=== PATIENT | female | born 1985 | race African-American/Black ===

== ENCOUNTER → 2019-06-23 09:46 | Outpatient (CLI) | payer MEDICARE ==
[~2019-06-23 09:46] MED LIST: ATARAX 25 MG TA25 MG PO; BAYER CHEWABLE81 MG PO; CONSTULOSE PO; COREG25 MG PO; COZAAR25 MG PO; ISOSORBIDE DINI10 MG PO; NITROQUICK0.4 MG SL; NORVASC10 MG PO; PERCOCET 10-321 EAC1 PO; PHENERGAN6.25 MG/5 PO; PLAVIX75 MG PO; REGLAN5 MG PO; RENVELA800 MG PO; ZOFRAN ODT4 MG/UDTAB PO
[2019-08-06 10:02] VITALS: BMI 25.6
== END | disposition home or self-care (01) ==
LOC: D.HCCARDIO 09:46
PROVIDERS: ATTEND Internal Medicine Cardiovascular Disease
DX: I20.9 Angina pectoris, unspecified (principal)

== ENCOUNTER 2019-07-09 07:20 | Outpatient (CLI) | payer MEDICARE ==
[~2019-07-09] VITALS: Ht 157.5 cm; Wt 63.6 kg
--- NOTE | ~2019-07-09 | HEMODYNAMI ---
PATIENT:SHAI ADAME MEDICAL RECORD: [id number] : 85 LOCATION:[facility] ADMISSION DATE: 07/09/19 Generatedon:07/09/201911:33 Patient name: SHAI ADAME Patient #: [id number] SSN: [id number] : 1985 Date of study: 07/09/2019 Page: Of Hemodynamic Procedure Report Patient Data Patient Demographics Procedure consent was obtained First Name: SHAI Gender: Female Last Name: DEEP : 1985 Patient #: [id number] Age: 34 year(s) Race: Black SSN: [id number] Additional ID: [id number] Contact details [address]: [address] [place] [address] State: [place] City: [place] Zip code: [address] Past Medical History Performed procedures and imaging results Date Procedure Procedure Results Comments Stress testing Positive->Intermediate with SPECT MPI risk Allergies Allergen Reaction Date Comments Reported Other allergy 07/09/2019 LATEX, LEMON, STOCKBRIDGE, PCN, FENTANYL Admission Admission Data Admission Date: 07/09/2019 Admission Time: 7:20 Arrival Date: 07/09/2019 Arrival Time: 0:00 Admit Source: Other Insurance Payor: Medicare [facility] #: [id number] Height (in.): 61.81 BSA: 1.64 (m2) Height (cm.): 157 BMI: 25.96 (kg/m2) Weight (lbs.): 141.1 Weight (kg.): 64 Lab Results Lab Result Date: 07/09/2019 Lab Result Time: 0:00 Biochemistry Name Units Result Min Max BUN mg/dl 32 --(----)-* 7 18 Creatinine mg/dl 7 --(----)-* 0.6 1.3 eGFR ml/min 9 *-(----)-- 90 120 AM CBC Name Units Result Min Max Hematocrit % 36.8 *-(----)-- 42 54 Hemoglobin g/dl 12.6 -*(----)-- 13.5 17.5 Procedure Procedure Types Cath Procedure Diagnostic Procedure [facility] w/Coron[facility] Procedure Description Procedure Date Procedure Date: 07/09/2019 Procedure Start Time: 10:47 Procedure End Time: 11:26 Procedure Staff Name Function Jorge Hernadez MD Performing Physician Lynn Tan RT Monitor Blaine Flynn RT Scrub Jovanna Stauffer RT Scrub Jenna Montero RN Nurse Tapan Lopez MD Additional personnel Procedure Data Cath Procedure Fluoroscopy Diagnostic fluoroscopy Total fluoroscopy Time: 2.4 time: 2.4 min min Diagnostic fluoroscopy Total fluoroscopy dose: 337 dose: 337 mGy mGy Contrast Material Contrast Material Type Amount (ml) Isovue 300 95 Entry Location Entry Primary Successful Side Size Upsize Upsize Entry Closure Succes sful Closure Location (Fr) 1 (Fr) 2 (Fr) Remarks Device Remarks Femoral Right 5 Fr Exoseal artery Estimated blood loss: 10 ml Diagnostic catheters Device Type Used For End Catheter Placement MULTIPACK JL 4.0 5Fr Procedure catheter MULTIPACK 3DRC 5Fr Procedure catheter MULTIPACK Pigtail 5 Fr Procedure catheter Procedure Complications No complications Procedure Medications Medication Administration Route Dosage 0.9% NaCl I.V. Oxygen etCO2 Nasal cannula 2 l/min Lidocaine 2% added to field 20 Heparin Flush Bag added to field 2 bags (1000units/500ml NS) Zofran I.V. 4 mg Versed I.V. 2 mg Demerol I.V. 25 mg Phenergan I.V. 25 mg Versed I.V. 2 mg Versed I.V. 2 mg Refer to Anesthesia Notes for Sedation Medications Hemodynamics Rest BSA: 1.64 (m2) HGB: 12.6 (g/dl) O2 Consumption: Estimated: 183.9 (ml/min) O2 Con sumption indexed: Estimated:112.13 (ml/min/m) Heart Rate: 90 (bpm) Pressure Samples Time Site Value (mmHg) Purpose Heart Use Rate(bpm) 11:19 LV 145/1,19 Snapshot 91 Gradients Valve Time Site Site Mean SEP/DFP Peak To Heart Use 1 2 (mmHg) (sec/min) Peak Rate (mmHg) (bpm) Aortic 11:20 LV AO 90 Snapshots Pre Cath Intra NCS Post Cath Vital Signs Time Heart Resp SPO2 etCO2 NIBP (mmHg) Rhythm Pain Sedation Rate (ipm) (%) (mmHg) Status Level (bpm) 10:30:29 85 21 100 27 Measuring NSR 0 (11) 10(A) , No pain 10:30:58 90 20 100 27.8 200/114(155) NSR 0 (11) 10(A) , No pain 10:35:24 94 21 100 27.1 211/124(204) NSR 0 (11) 10(A) , No pain 10:40:01 96 16 100 24 197/117(158) NSR 0 (11) 10(A) , No pain 10:44:29 99 17 100 12.7 185/110(144) NSR 0 (11) 10(A) , No pain 10:49:01 119 16 100 21.8 114/92(108) NSR 0 (11) 10(A) , No pain 10:53:54 121 14 100 24.8 187/141(175) NSR 0 (11) 10(A) , No pain 10:58:53 129 18 99 20.3 Measuring NSR 0 (11) 10(A) , No pain 10:59:30 124 16 100 24.8 223/131(174) NSR 0 (11) 10(A) , No pain 11:04:00 112 17 100 27 207/132(162) NSR 0 (11) 10(A) , No pain 11:07:23 96 24 100 27 172/113(138) NSR 0 (11) 5(A) , No pain 11:12:22 95 24 100 24 Measuring NSR 0 (11) 5(A) , No pain 11:12:55 93 23 100 21.8 180/102(140) NSR 0 (11) 5(A) , No pain 11:17:13 87 21 100 21 152/97(124) NSR 0 (11) 5(A) , No pain 11:21:25 90 32 100 17.2 140/86(118) NSR 0 (11) 5(A) , No pain 11:25:33 90 18 100 20.3 140/86(107) NSR 0 (11) 5(A) , No pain Medications Time Medication Route Dose Verified Delivered Reason Notes Eff ectiveness by by 10:29:50 0.9% NaCl I.V. kvo Jorge Jenna used for ml/hr Satya Montero insurance agency manager 10:29:58 Oxygen etCO2 2 Jorge Jenna used for Nasal l/min Satya Montero procedure cannula RN 10:30:06 Lidocaine 2% added 20ml Jorge Jorge for local to vial Satya Hernadez MD anesthetic field 10:30:12 Heparin Flush added 2 Jorge Jorge used for Bag to bags Satya Hernadez MD procedure (1000units/500ml field NS) 10:30:23 Zofran I.V. 4 mg Jorge Jenna for nausea Satya Montero RN 10:40:02 Versed I.V. 2 mg Jorge Jenna for Satya Montero sedation RN 10:40:08 Phenergan I.V. 25 mg Jorge Jenna for Satya Montero sedation RN 10:40:15 Demerol I.V. 25 mg Jorge Jenna for Satya Montero sedation RN 10:45:34 Versed I.V. 2 mg Jorge Jenna for Satya Montero sedation RN 10:53:42 Versed I.V. 2 mg Jorge Jenna for Satya Montero sedation RN 11:04:34 Refer to Jorge Jorge Anesthesia Notes Satya Hernadez MD for Sedation Medications Procedure Log Time Note 9:24:32 Signed procedure consent form obtained from patient. 9:24:35 Procedure Status Elective Heart Cath (OP). 9:24:40 Time tracking: Regular hours (M-F 7:00 - 5:00) 9:24:44 Plan of Care:Hemodynamics will remain stable., Cardiac rhythm will remain stable., Comfort level will be maintained., Respiratory function will remain adequate., Patient/ family verbilizes understanding of procedure., Procedure tolerated without complication., Recovers from procedure without complications.. 9:27:40 Patient allergic to Other allergyLATEX, LEMON, STOCKBRIDGE, PCN, FENTANYL 9::54 Lab Result : BUN 32 mg/dl 9::54 Lab Result : Creatinine 7 mg/dl 9::54 Lab Result : eGFR AM 9 ml/min 9::54 Lab Result : Hemoglobin 12.6 g/dl 9::54 Lab Result : Hematocrit 36.8 % 9:29:04 Patient Weight : 141.1 lbs 9:29:10 Patient Height : 61.81 inches 9:36:28 Insurance Payor : Medicare 9:36:33 Arrival Date: 07/09/2019 12:00:00 AM 9:36:37 Admit Source: Other 9:47:25 PCI Cath Status : Elective 9:47:26 Diagnostic Cath Status : Elective 10:15:17 Blaine Saleemley RT(R) sent for patient. Start room use. 10:21:36 Patient received from Pre/Post Procedure Room to CCL 3 Alert and oriented. Tansferred to table in Supine position. 10:21:38 Warm blankets applied, and alecia hugger turned on for patient comfort. 10:21:38 Correct patient and procedure confirmed by team. 10:21:39 ECG and BP/O2 sat monitors applied to patient. 10:28:41 Vital chart was started 10:28:43 Baseline sample Acquired. 10:28:48 Rhythm: sinus rhythm 10:28:49 Full Disclosure recording started 10:28:50 Pre-procedure instructions explained to patient. 10:28:50 Pre-op teaching completed and patient verbalized understanding. 10:28:52 Family in patients room. 10:29:28 H&P Date Dictated: 07/09/2019 Within 30 days and on chart., H&P Addendum completed by physician on day of procedure. (MUST COMPLETE FOR ALL OUTPATIENTS). 10:29:36 Is patient on blood thinner?No 10:29:39 Is the patient allergic to Iodine/contrast media? No. 10:29:42 Patient NPO since Midnight. 10:29:46 Patient diabetic? No. 10:29:50 0.9% NaCl kvo ml/hr I.V. was administered by Jenna Montero RN; used for procedure; 10:29:53 Previous problem with sedation/anesthesia? Yes NAUSEA 10:29:55 Snore? Yes 10:29:56 Sleep apnea? Yes 10:29:57 Deviated septum? No 10:29:57 Opens mouth fully? Yes 10:29:58 Oxygen 2 l/min etCO2 Nasal cannula was administered by Jenna Montero RN; used for procedure; 10:29:59 Sticks out tongue? Yes 10:30:00 Airway obstruction? No ? 10:30:03 Dentures? No ? 10:30:06 Lidocaine 2% 20ml vial added to field was administered by Jorge Hernadez MD; for local anesthetic; 10:30:10 Pre procedure: right dorsailis pedis pulse 1+ Palpable, but thready & weak; easily obliterated 10:30:12 Heparin Flush Bag (1000units/500ml NS) 2 bags added to field was administered by Jorge Hernadez MD; used for procedure; 10:30:17 IV patent on arrival in right antecubital with 0.9% NaCl at KVO. 10:30:23 Zofran 4 mg I.V. was administered by Jenna Montero RN; for nausea; 10:30:31 Lab results completed and on chart. 10:30:34 Right groin area was prepped with chlora-prep and draped in sterile fashion 10:30:37 RESERVE LEFT ARM. DIALYSIS 10:30:39 Alarms reviewed by R. N. 10:30:40 Sharps counted by scrub and verified by R.N. 10:37:24 Zero performed for pressure channel P1 10:39:47 --------ALL STOP TIME OUT------ 10:39:47 Final Timeout: patient, procedure, and site verified with staff and physician. All members of the team are in agreement. 10:39:49 Right groin site verified by team. 10:39:52 Fire Safety Assessment: A--An alcohol-based skin anteseptic being used preoperatively., C--Open oxygen or nitrous oxide is being used., D--An ESU, laser, or fiber-optic light is being used. 10:39:56 Physical assessment completed. ASA score P 3 - A patient with severe systemic disease as per Jorge Hernadez MD. 10:40:00 5) <15 or on dialysis Very severe, or end stage kidney failure. 10:40:02 Versed 2 mg I.V. was administered by Jenna Montero RN; for sedation; 10:40:04 Maximum allowable contrast dose (3.7 X eGFR X 0.75)24 ml. 10:40:08 Phenergan 25 mg I.V. was administered by Jenna Montero RN; for sedation; 10:40:09 Sedation plan: IV Moderate Sedation Medication:Versed 10:40:15 Demerol 25 mg I.V. was administered by Jenna Winston RN; for sedation; 10:40:37 Use device set Femoral Dx 10:40:40 ACIST Syringe (94797) opened to sterile field. 10:40:41 Bag Decanter (2002S) opened to sterile field. 10:40:42 ACIST Hand Control (08511) opened to sterile field. 10:40:43 ACIST Manifold (54615) opened to sterile field. 10:40:44 Tegaderm 4 x 4 (1626W) opened to sterile field. 10:40:46 Medline Cath Pack ([id number]) opened to sterile field. 10:40:47 DIAGNOSTIC Multipack 5Fr catheter set (PP0992) opened to sterile field. 10:40:48 SHEATH 5FR [place] (RJC083) opened to sterile field. 10:40:48 EMERALD Guide Wire (208-870) opened to sterile field. 10:45:34 Versed 2 mg I.V. was administered by Jenna Montero RN; for sedation; 10:46:06 Procedure started. 10:47:49 Local anesthetic to right femoral artery with Lidocaine 2% by Jorge Hernadez MD.INITIAL ACCESS ONLY 10:53:11 MICROPUNCTURE 4FR [employer] (C78341) opened to sterile field. 10:53:42 Versed 2 mg I.V. was administered by Jenna Montero RN; for sedation; 10:59:36 ANESTHESIA CALLED. PT CANNOT STAY STILL FOR PROCEDURE. 11:01:55 Tapan Lopez MD present and monitoring patient for TIVA. 11:04:34 Refer to Anesthesia Notes for Sedation Medications was administered by Jorge Hernadez MD; ; 11:11:57 A 5 Fr sheath was inserted into the Right Femoral artery 11:12:38 A MULTIPACK JL 4.0 5Fr catheter was advanced over the wire and used for Procedure. 11:15:06 LCA angiography performed. 11:15:41 Catheter exchanged over wire. 11:16:16 A MULTIPACK 3DRC 5Fr catheter was advanced over the wire and used for Procedure. 11:17:46 RCA angiography performed. 11:17:49 Catheter exchanged over wire. 11:18:21 ACCDominant side:Right 11:18:25 A MULTIPACK Pigtail 5 Fr catheter was advanced over the wire and used for Procedure. 11:19:03 LV gram done using REYNA 11:19:13 Injector settings: Ml/sec: 10, Volume: 20, 11:19:38 LV hemodynamics recorded. 11:20:08 EF : 25 % 11:21:41 Catheter removed. 11:21:43 EXOSEAL 5Fr (EX500) opened to sterile field. 11:23:07 Sheath removed intact; hemostasis achieved with Exoseal to the Right Femoral artery. 11:23:17 Procedure ended.(Physican Out) 11:23:26 Fluoroscopy time 02.40 minutes. 11:23:32 Fluoroscopy dose: 337 mGy 11:23:32 Flurop Dose total: 337 11:23:43 Contrast amount:Isovue 300 95ml. 11:23:45 Maximum allowable dose exceeded? Yes. 11:23:47 Sharps counted by scrub and verified by R.N. 11:23:50 Post-op/insertion site Right Femoral artery dressed using a 4 x 4 and Tegaderm. 11:23:52 Post-procedure physical assessment completed. ASA score P 3 - A patient with severe systemic disease as per Jorge Hernadez MD. 11:23:55 Post procedure rhythm: sinus rhythm 11::57 Estimated blood loss: 10 ml 11:23:58 Post procedure instruction explained to patient.Patient verbalizes understanding. 11:23:59 Patient needs reinforcement of post procedure teaching. 11:26:09 Procedure and supply charges have been captured, reviewed, submitted and are correct. 11:26:12 Procedure Complication : No complications 11:26:14 Vital chart was stopped 11:26:15 See physician's report for complete and final results. 11:26:17 Report given to Pre/Post Procedure Room. 11:26:21 Patient transfered to Pre/Post Procedure Room with Bed. 11:26:23 Procedure ended. 11:26:23 Full Disclosure recording stopped 11:26:27 End room use (Document Last) 11:30:41 FEMSTOP Gold ([id number]) opened to sterile field. 11:30:49 Femstop placed over the right femoral artery at 160 mmHg. Hemostasis achieved. Device Usage Item Name Manufacture Quantity Catalog Hospital Part Current Minimal Lot# / Number Charge Number Stock Stock Serial# Code ACIST Syringe Acist 1 24761 660014 469857 [id number] 20 () InnoVital [employer] Inc Bag Decanter Microtek 1 117778 96542 940111 5 (2002S) Medical Inc. ACIST Hand Acist 1 78122 676680 570629 339307 5 Control Medical (95257) Systems Inc ACIST Acist 1 44575 403080 341007 812346 5 Manifold Medical (52525) Systems Inc Tegaderm 4 x 3M 1 1626W 985523 595697 619422 5 4 (1626W) Medline Cath Medline 1 [id number] 526737 10343 853877 5 Pack ([id number]) DIAGNOSTIC Cardinal 1 TW0186 177742 92471 007985 30 Multipack 5Fr Health catheter set (QR7604) SHEATH 5FR Terumo 1 WUU462 593824 241783 656737 5 [place] (JTS391) EMERALD Guide Cardinal 1 113-359 390650 751851 398304 5 Wire Health (921-770) MICROPUNCTURE Cook Medical 1 R24453 926840 216197 217494 5 4FR Cook (V34986) MULTIPACK JL Cardinal 1 582696 5 4.0 5Fr Health catheter MULTIPACK Cardinal 1 550090 5 3DRC 5Fr Health catheter MULTIPACK Cardinal 1 255276 5 Pigtail 5 Fr Health catheter EXOSEAL 5Fr Cardinal 1 EX500 031707 731117 815912 10 (EX500) Health FEMSTOP Gold St Demetrio 1 C45455 887064 530950 550987 5 (J20135) Signature Audit [place] Stage Time Signature Unsigned Intra-Procedure 07/09/2019 Lynn Tan 11:32:55 AM RT(R) Signatures Performing Physician : Signature : Jorge Hernadez MD Date : Time : Monitor : Lynn Tan Signature : RT Date : Time : Nurse : Jenna Montero RN Signature : Date : Time : [place] [address] [place] [address]
[2019-07-09] MEDS ORDERED: PERCOCET 10-321 EAC1 PO (08:03)
[2019-07-09] MEDS ORDERED: REGLAN5 MG PO (08:03)
[2019-07-09] MEDS ORDERED: NORVASC10 MG PO (08:03)
[2019-07-09] MEDS ORDERED: RENVELA800 MG PO (08:04)
[2019-07-09] MEDS ORDERED: COREG25 MG PO (08:04)
[2019-07-09] MEDS ORDERED: ATARAX 25 MG TA25 MG PO (08:04)
[2019-07-09] MEDS ORDERED: COZAAR25 MG PO (08:05)
[2019-07-09] MEDS ORDERED: BAYER CHEWABLE81 MG PO (08:05)
[2019-07-09] MEDS ORDERED: ISOSORBIDE DINI10 MG PO (08:05)
[2019-07-09 08:21] VITALS: BP 187/94; Ht 157.5 cm; Wt 63.6 kg
[2019-07-09 08:22] LABS: BASOPHILS 0.4 % (0-2); EOSINOPHILS 2.5 % (0-7); HEMATOCRIT 36.8 % (36.0-48.0); HEMOGLOBIN 12.6 g/dL (12-16); IMMATURE GRANULOCYTES 0.4 % (0-5); LYMPHOCYTES 16.8 % (15-50); MCH 36.2 pg (26.0-34.0); MCHC 34.2 g/dL (31.0-37.0); MCV 105.7 fL (80.0-100.0); MEAN PLATELET VOLUME 10.5 fL (7.4-10.4); MONOCYTES 8.6 % (2-11); NEUTROPHILS 71.3 % (40-80); PLATELET COUNT 255 10x3/uL (130-400); RBC 3.48 10x6/uL (4.00-5.40); RDW 13.7 % (11.5-14.5); WBC 8.5 10x3/uL (4.8-10.8)
[2019-07-09 08:35] LABS: HCG SERUM NEGATIVE (NEGATIVE)
[2019-07-09 08:43] LABS: CARBON DIOXIDE 25.5 mmol/L (21.0-32.0); LDL-HDL RATIO 1.8 ratio (1.5-3.5); POTASSIUM - SERUM 4.5 mmol/L (3.5-5.1)
--- NOTE | 2019-07-09 11:39 | NUR ---
PT ARRIVED BY STRECHER. PLACED ON MONITORS. ASSESSMENT COMLETED. PT'S MOTHER AT BEDSIDE. DR. ELLIS AT BEDSIDE SPEAKING WITH HER. PT STILL SEDATED AND RESTING. FEMSTOP TO RIGHT GROIN AT 104mmHg. RIGHT LEG WARM TO TOUCH. PEDAL PULSE PRESENT WITH DOPPLER. CAP REFILL < 3 SECS
--- NOTE | 2019-07-09 11:55 | NUR ---
RIGHT GROIN DRESSING C/D/I. NO S/S OF HEMATOMA NOTED. PT'S BP 203/90. DR. RHONDA YOO.
--- NOTE | 2019-07-09 12:02 | NUR ---
SPOKE WITH DR. ELLIS. ORDERS RECEIVED FOR MEDICATION.
--- NOTE | 2019-07-09 12:25 | NUR ---
FEMSTOP TO RIGHT GROIN WITH ALL PRESSURE OUT. NO BLEEDING/HEMATOMA NOTED. PT PROPPED WITH PILLOW OFF OF RIGHT HIP DUE TO CHRONIC PAIN. TOLERATING WELL. CALL LIGHT WITHIN REACH.
--- NOTE | 2019-07-09 12:54 | NUR ---
RIGHT GROIN DRESSING C/D/I. NO S/S OF HEMATOMA NOTED. CALL LIGHT WITHIN REACH. FAMILY AT BEDSIDE. UPDATED ON PT'S STATUS. HEAD OF BED INC TO 30 DEGREES. TOLERATED WELL. VSS. BP TRENDING DOWN. 185/87. PT SET UP WITH DRINK AND SANDWICH TRAY.
--- NOTE | 2019-07-09 13:15 | NUR ---
RIGHT ARM PIV D/C'D WITH CATH TIP INTACT. PT TOLERATED WELL. VSS. PT INSTRUCTED TO GET UP AND DRESSED. AT BEDSIDE TO ASSIST.
--- NOTE | 2019-07-09 13:35 | NUR ---
DISCUSSED DISCHARGE INSTRUCTIONS WITH PT AND PT'S FAMILY. THEY VOICED UNDERSTANDING. WILL FOLLOW UP WITH DR. ELLIS TOMORROW AT THE [facility] AT 10:45. APPT TIME GIVEN TO PT'S MOTHER.
--- NOTE | 2019-07-09 13:45 | NUR ---
PT TAKEN OUT TO VEHICLE BY WHEELCHAIR. NO S/S OF DISTRESS NOTED. ALL BELONGINGS AND PAPERWORK IN HAND.
== END 2019-07-09 13:45 | disposition home or self-care (01) ==
LOC: D.CATH 07:20
PROVIDERS: ATTEND Internal Medicine Cardiovascular Disease
DX: I25.119 Atherosclerotic heart disease of native coronary artery with unspecified angina pectoris (principal); Z01.812 Encounter for preprocedural laboratory examination

== ENCOUNTER 2019-08-06 09:23 | Outpatient (CLI) | payer MEDICARE ==
[~2019-08-06] VITALS: Ht 157.5 cm; Wt 63.6 kg
--- NOTE | ~2019-08-06 | HEMODYNAMI ---
PATIENT:SHAI ADAME MEDICAL RECORD: [id number] : 85 LOCATION:[facility] ADMISSION DATE: 08/06/19 Generatedon:08/06/201913:28 Patient name: SHAI ADAME Patient #: [id number] SSN: [id number] : 1985 Date of study: 08/06/2019 Page: Of Hemodynamic Procedure Report Patient Data Patient Demographics Procedure consent was obtained First Name: SHAI Gender: Female Last Name: DEEP : 1985 Patient #: [id number] Age: 34 year(s) Race: Black SSN: [id number] Additional ID: [id number] Contact details [address]: [address] [place] [address] State: [place] City: [place] Zip code: [address] Past Medical History Allergies Allergen Reaction Date Comments Reported Other allergy 07/09/2019 LATEX, LEMON, SELDOVIA, PCN, FENTANYL Other allergy 08/06/2019 latex, PCN, Fentanyl, Lemon/Ak Chin Admission Admission Data Admission Date: 08/06/2019 Admission Time: 9:23 Room #: [facility] Lab Results Lab Result Date: 08/06/2019 Lab Result Time: 10:00 Biochemistry Name Units Result Min Max BUN mg/dl 41 --(----)-* 7 18 Creatinine mg/dl 7.8 --(----)-* 0.6 1.3 CBC Name Units Result Min Max Hematocrit % 43.7 --(*---)-- 42 54 Hemoglobin g/dl 14.6 --(-*--)-- 13.5 17.5 Procedure Procedure Types Cath Procedure Diagnostic Procedure Sedation Charges Moderate Sedation up to 30 minutes PCI Procedure Coronary Stent Coronary Stent Initial Coronary Stent Initial x2 Procedure Description Procedure Date Procedure Date: 08/06/2019 Procedure Start Time: 12:41 Procedure End Time: 13:17 Procedure Staff Name Function Christian Bishop MD Performing Physician Elizabeth Grande RT Monitor Brandie Bell RT Scrub Heath Inman RN Nurse Lorie An RN Milking Machine Operator Leland Gonzalez CRNA Additional personnel Procedure Data Cath Procedure Fluoroscopy Diagnostic fluoroscopy Total fluoroscopy Time: time: 10.2 min 10.2 min Diagnostic fluoroscopy Total fluoroscopy dose: dose: 1462 mGy 1462 mGy Contrast Material Contrast Material Type Amount (ml) Isovue 300 140 Entry Location Entry Primary Successful Side Size Upsize Upsize Entry Closure Succes sful Closure Location (Fr) 1 (Fr) 2 (Fr) Remarks Device Remarks Femoral Right 7 Fr Exoseal artery Short Estimated blood loss: 5 ml Procedure Complications No complications Procedure Medications Medication Administration Route Dosage Phenergan 25 mg 0.9% NaCl I.V. 10 ml/hr Oxygen etCO2 Nasal cannula 5 l/min Heparin Flush Bag added to field 2 bags (1000units/500ml NS) Lidocaine 2% added to field 20 Pepcid I.V. 20 mg Refer to Anesthesia Notes for Sedation Medications Heparin Bolus I.V. 4000 units Integrilin (Bolus I.V. 5.6 ml 2mg/ml) Integrilin (Bolus wasted 4.4 ml 2mg/ml) Plavix P.O. 600 mg Hemodynamics Rest HGB: 14.6 (g/dl) Heart Rate: 104 (bpm) Snapshots Pre Cath Intra NCS Post Cath Vital Signs Time Heart Resp SPO2 etCO2 NIBP (mmHg) Rhythm Pain Sedation Rate (ipm) (%) (mmHg) Status Level (bpm) 12:34:40 100 18 100 31.4 208/129(173) NSR 0 (11) 10(A) , No pain 12:44:09 106 18 100 29.2 155/106(130) NSR 0 (11) 8(A) , No pain 12:48:23 108 30 100 33.7 171/112(139) NSR 0 (11) 8(A) , No pain 12:52:41 106 18 100 36.7 135/90(111) NSR 0 (11) 8(A) , No pain 12:56:51 104 18 100 36.7 128/85(105) NSR 0 (11) 8(A) , No pain 13:00:59 99 16 100 37.4 122/82(105) NSR 0 (11) 8(A) , No pain 13:05:07 103 17 100 38.1 115/81(95) NSR 0 (11) 8(A) , No pain 13:09:15 106 16 100 38.2 113/71(92) NSR 0 (11) 8(A) , No pain 13:13:21 109 16 100 38.9 109/73(96) NSR 0 (11) 8(A) , No pain 13:22:19 110 19 100 32.9 115/74(92) NSR 0 (11) 9(A) , No pain Medications Time Medication Route Dose Verified Delivered Reason Notes Effectiveness by by 12:15:34 Phenergan IM to 25 mg Christian Melo Per physician Pt st ates Rt GM Edna An RN vomiting with any form of sedation. 12:32:28 0.9% NaCl I.V. 10 Heath Heath Per physician ml/hr Henny Inman RN RN 12:32:55 Oxygen etCO2 5 Heath Heath for low 02 sats Nasal l/min Henny Inman cannula RN RN 12:33:20 Heparin Flush added 2 Heath Heath used for Bag to bags Henny Inman procedure (1000units/500ml RN RN NS) 12:33:33 Lidocaine 2% added 20ml Heath Heath for local to vial Henny Inman anesthetic field RN RN 12:33:45 Pepcid I.V. 20 mg Heath Heath for nausea Henny Inman RN RN 12:34:07 Refer to Heath Heath for sedation Anesthesia Notes Henny Inman for Sedation RN RN Medications 12:51:31 Heparin Bolus I.V. 4000 Heath Heath for units Henny Inman anticoagulation RN RN 12:51:46 Integrilin I.V. 5.6 Heath Heath for (Bolus 2mg/ml) ml Henny Inman antiplatelet RN RN therapy 12:52:04 Integrilin wasted 4.4 Heath Heath to sharp's (Bolus 2mg/ml) ml Henny Inman RN RN 13:28:12 Plavix P.O. 600 Heath Heath for mg Henny Inman antiplatelet RN RN therapy Procedure Log Time Note 12:15:34 Phenergan 25 mg IM to Rt GM was administered by Lorie An RN; Per physician; Pt states vomiting with any form of sedation. Verbal order read back and verified. 12:21:24 Brandie Bell RT(R) sent for patient. Start room use. 12:21:29 Time tracking: Regular hours (M-F 7:00 - 5:00) 12:21:34 Plan of Care:Hemodynamics will remain stable., Cardiac rhythm will remain stable., Comfort level will be maintained., Respiratory function will remain adequate., Patient/ family verbilizes understanding of procedure., Procedure tolerated without complication., Recovers from procedure without complications.. 12:21:40 Patient received from Pre/Post Procedure Room to CCL 2 Alert and oriented. Tansferred to table in Supine position. 12:21:42 Warm blankets applied, and alecia hugger turned on for patient comfort. 12:21:43 Signed procedure consent form obtained from patient. 12:21:44 Correct patient and procedure confirmed by team. 12:21:44 ECG and BP/O2 sat monitors applied to patient. 12:22:57 H&P Date Dictated: 07/10/2019 Within 30 days and on chart., H&P Addendum completed by physician on day of procedure. (MUST COMPLETE FOR ALL OUTPATIENTS). 12:23:00 Pre-procedure instructions explained to patient. 12:23:01 Pre-op teaching completed and patient verbalized understanding. 12:23:02 Family in waiting room. 12:23:03 Patient NPO since Midnight. 12:23:43 Patient allergic to Other allergylatex, PCN, Fentanyl, Lemon/Ak Chin 12:23:45 Is the patient allergic to Iodine/contrast media? No. 12:23:46 Patient diabetic? Yes. 12:23:47 If diabetic: On Metformin? No 12:23:50 Previous problem with sedation/anesthesia? Yes nausea 12:23:58 Snore? Yes 12:23:59 Sleep apnea? Yes 12:24:00 Deviated septum? No 12:24:13 Opens mouth fully? Yes 12:24:18 Sticks out tongue? Yes 12:24:20 Airway obstruction? Yes ? 12:24:22 Dentures? No ? 12:24:25 Pre procedure: right dorsailis pedis pulse 2+ Normal; easily identifiable; not easily obliterated 12:24:34 Patient pain scale 0/10 ?. 12:24:38 IV patent on arrival in right wrist with 0.9% NaCl at [facility]. 12:25:21 Leland Gonzalez CRNA present and monitoring patient for TIVA. 12::48 Lab Result : BUN 41 mg/dl 12::48 Lab Result : Creatinine 7.8 mg/dl 12::48 Lab Result : Hemoglobin 14.6 g/dl 12::48 Lab Result : Hematocrit 43.7 % 12::50 Lab results completed and on chart. 12:25:52 Right groin area was prepped with chlora-prep and draped in sterile fashion 12::53 Alarms reviewed by R. N. 12::53 Sharps counted by scrub and verified by R.N. 12:25:55 Use device set Femoral Dx 12:26:05 ACIST Syringe (12636) opened to sterile field. 12:26:05 Bag Decanter (2002S) opened to sterile field. 12:26:06 Medline Cath Pack ([id number]) opened to sterile field. 12:26:07 ACIST Hand Control (85619) opened to sterile field. 12:26:07 ACIST Manifold (27739) opened to sterile field. 12:26:08 Tegaderm 4 x 4 (1626W) opened to sterile field. 12:26:10 EMERALD Guide Wire (813-897) opened to sterile field. 12:29:03 5) <15 or on dialysis Very severe, or end stage kidney failure. 12:30:11 Physician arrived 12::12 --------ALL STOP TIME OUT------ 12:30:12 Final Timeout: patient, procedure, and site verified with staff and physician. All members of the team are in agreement. 12:30:14 Right groin site verified by team. 12:30:19 Fire Safety Assessment: A--An alcohol-based skin anteseptic being used preoperatively., C--Open oxygen or nitrous oxide is being used., D--An ESU, laser, or fiber-optic light is being used. 12:30:28 Physical assessment completed. ASA score P 2 - A patient with mild systemic disease as per Christian Bishop MD. 12:30:32 Maximum allowable contrast dose (3.7 X eGFR X 0.75)22 ml. 12:30:35 Sedation plan: IV Moderate Sedation Medication:Versed, Fentanyl 12:32:19 Vital chart was started 12::28 0.9% NaCl 10 ml/hr I.V. was administered by Heath Inman RN; Per physician; Verbal order read back and verified. 12:32:38 Baseline sample Acquired. 12:32:41 Full Disclosure recording started 12:32:55 Oxygen 5 l/min etCO2 Nasal cannula was administered by Heath Inman RN; for low 02 sats; Verbal order read back and verified. 12:33:20 Heparin Flush Bag (1000units/500ml NS) 2 bags added to field was administered by Heath Inman RN; used for procedure; Verbal order read back and verified. 12:33:33 Lidocaine 2% 20ml vial added to field was administered by Heath Inman RN; for local anesthetic; Verbal order read back and verified. 12:33:45 Pepcid 20 mg I.V. was administered by Heath Inman RN; for nausea; Verbal order read back and verified. 12:34:07 Refer to Anesthesia Notes for Sedation Medications was administered by Heath Inman RN; for sedation; Verbal order read back and verified. 12:37:49 CHOICE PT Extra Support 182cm wire ([id number]) opened to sterile field. 12:41:16 Procedure started. 12:41:19 Local anesthetic to right femoral artery with Lidocaine 2% by Christian Bishop MD.INITIAL ACCESS ONLY 12:41:37 A 7 Fr Short sheath was inserted into the Right Femoral artery 12:42:49 SHEATH 7FR Dunnigan (SRW744) opened to sterile field. 12:42:50 INFLATOR Merit BasixCompak (LM1294) opened to sterile field. 12:48:22 GUIDE 7FR HS II SH catheter ([id number]) opened to sterile field. 12:49:00 7 Fr hs 2 sh guide catheter was inserted over the wire 12:49:06 choice pt wire advanced. 12:49:10 Wire advanced across lesion. 12:51:31 Heparin Bolus 4000 units I.V. was administered by Heath Inman RN; for anticoagulation; Verbal order read back and verified. 12:51:46 Integrilin (Bolus 2mg/ml) 5.6 ml I.V. was administered by Heath Inman RN; for antiplatelet therapy; Verbal order read back and verified. 12:52:04 Integrilin (Bolus 2mg/ml) 4.4 ml wasted was administered by Heath Inman RN; to josh's; Verbal order read back and verified. 12:52:05 Inflate balloon Inflation number: 1 A EUPHORA 2.5 x 25 Balloon ([id number]) was prepped and advanced across the Dist RCA 95, then inflated to 13 SHILA for 0:10 (min:sec) . 12:52:15 Inflation number: 2 The EUPHORA 2.5 x 25 Balloon ([id number]) was reinflated across the Dist RCA , to 13 SHILA for 0:10 (min:sec) . 12:52:44 Inflation number: 1 The EUPHORA 2.5 x 25 Balloon ([id number]) was reinflated across the Mid RCA 95, to 13 SHILA for 0:10 (min:sec) 0. 12:53:03 Inflation number: 1 The EUPHORA 2.5 x 25 Balloon ([id number]) was reinflated across the Prox RCA 95, to 13 SHILA for 0:10 (min:sec) . 12:53:10 Inflation number: 2 The EUPHORA 2.5 x 25 Balloon ([id number]) was reinflated across the Prox RCA , to 13 SHILA for 0:10 (min:sec) . 12:53:16 Balloon removed over the wire. 12:54:24 Place stent Inflation Number: 3 A JAIME RX 2.5 x 38 stent ([id number]) was prepped and advanced across the Dist RCA 95. The stent was deployed at 13 SHILA for 0:10 (min:sec) . 12:55:07 Stent catheter was removed intact over wire. 12:55:47 Place stent Inflation Number: 2 A JAIME RX 2.5 x 38 stent ([id number]) was prepped and advanced across the Mid RCA 95. The stent was deployed at 17 SHILA for 0:10 (min:sec) . 12:56:38 Stent catheter was removed intact over wire. 12:57:19 Place stent Inflation Number: 3 A JAIME RX 2.75 x 38 stent ([id number]) was prepped and advanced across the Prox RCA 95. The stent was deployed at 17 SHILA for 0:10 (min:sec) 0. 12:58:07 Inflation number: 4 The stent balloon was then re-inflated across the Prox RCA 95 to 17 SHILA for 0:10 (min:sec) . 12:58:28 Stent catheter was removed intact over wire. 12:58:39 Wire removed. 12:58:40 Guide catheter removed. 12:58:56 GUIDE 7FR EBU 3.5 SH catheter ([id number]) opened to sterile field. 12:59:16 7 Fr ebu 3.5 sh guide catheter was inserted over the wire 12:59:22 choice pt wire advanced. 13:02:23 Wire advanced across lesion. 13:03:10 The JAIME RX 2.0 x 22 stent ([id number]) was advanced then removed because of failure to cross lesion 13:05:17 Inflate balloon Inflation number: 1 A EUPHORA 2.0 x 20 Balloon ([id number]) was prepped and advanced across the Prox CX , then inflated to 15 SHILA for 0:10 (min:sec) . 13:05:46 Inflation number: 2 The EUPHORA 2.0 x 20 Balloon ([id number]) was reinflated across the Prox CX , to 19 SHILA for 0:10 (min:sec) . 13:06:41 Balloon removed over the wire. 13:07:26 Place stent Inflation Number: 3 A JAIME RX 2.0 x 22 stent ([id number]) was prepped and advanced across the Prox CX 90. The stent was deployed at 17 SHILA for 0:10 (min:sec) . 13:08:54 ACT drawn and resulted at 306 seconds. (normal therapeutic range 180-240 seconds). 13:09:36 Stent catheter was removed intact over wire. 13:10:30 Wire redirected to lad. 13:11:11 Place stent Inflation Number: 1 A JAIME RX 2.75 x 12 stent ([id number]) was prepped and advanced across the Prox LAD 95. The stent was deployed at 17 SHILA for 0:10 (min:sec) . 13:12:47 Stent catheter was removed intact over wire. 13:12:48 Wire removed. 13:12:48 Guide catheter removed. 13:12:55 EXOSEAL 7Fr (EX700) opened to sterile field. 13:13:05 Sheath removed intact; hemostasis achieved with Exoseal to the Right Femoral artery. 13:13:07 Procedure ended.(Physican Out) 13:13:48 Fluoroscopy time 10.20 minutes. 13:14:09 Fluoroscopy dose: 1462 mGy 13:14:09 Flurop Dose total: 1462 13:14:35 Contrast amount:Isovue 300 140ml. 13:14:38 Maximum allowable dose exceeded? Yes. 13:14:45 Sharps counted by scrub and verified by R.N. 13:14:46 Insertion/operative site no bleeding no hematoma. 13:14:50 Post-op/insertion site Right Femoral artery dressed using a 4 x 4 and Tegaderm. 13:15:01 Post Procedure Pulses reassessed and unchanged 13:15:03 Post procedure rhythm: unchanged. 13:15:06 Estimated blood loss: 5 ml 13:15:07 Post procedure instruction explained to patient.Patient verbalizes understanding. 13:15:08 Patient needs reinforcement of post procedure teaching. 13:15:58 Procedure type changed to Cath procedure, Diagnostic procedure, Sedation Charges, Moderate Sedation up to 30 minutes, PCI procedure, Coronary Stent, Coronary Stent Initial, Coronary Stent Initial x2 13:16:11 Procedure and supply charges have been captured, reviewed, submitted and are correct. 13:16:16 Procedure Complication : No complications 13:16:29 Vital chart was stopped 13:16:34 See physician's report for complete and final results. 13:16:55 Report given to Pre/Post Procedure Room. 13:16:57 Patient transfered to Pre/Post Procedure Room with Stretcher. 13:17:00 Procedure ended. 13:17:00 Full Disclosure recording stopped 13:17:45 ACC-PCI Only Patient was given prescriptions, or instructed by Christian Bishop MD to start/continue the following medications upon discharge: Plavix 13:17:47 End room use (Document Last) 13:28:12 Plavix 600 mg P.O. was administered by Heath Inman RN; for antiplatelet therapy; Verbal order read back and verified. Intervention Summary Intervention Notes Time ActionType Lesion and Equipment Used Action# Pressure Duration Attributes 12:52:05 Inflate Dist RCA EUPHORA 2.5 x 1 13 00:10 balloon 25 Balloon ([id number]) 12:52:15 Reinflate Dist RCA EUPHORA 2.5 x 2 13 00:10 balloon 25 Balloon ([id number]) 12:52:44 Reinflate Mid RCA EUPHORA 2.5 x 1 13 00:10 balloon 25 Balloon ([id number]) 12:53:03 Reinflate Prox RCA EUPHORA 2.5 x 1 13 00:10 balloon 25 Balloon ([id number]) 12:53:10 Reinflate Prox RCA EUPHORA 2.5 x 2 13 00:10 balloon 25 Balloon ([id number]) 12:54:24 Place stent Dist RCA JAIME RX 2.5 x 3 13 00:10 38 stent ([id number]) 12:55:47 Place stent Mid RCA JAIME RX 2.5 x 2 17 00:10 38 stent ([id number]) 12:57:19 Place stent Prox RCA JAIME RX 2.75 x 3 17 00:10 38 stent ([id number]) 12:58:07 Reinflate Prox RCA JAIME RX 2.75 x 4 17 00:10 stent 38 stent balloon ([id number]) 13:03:10 Discard JAIME RX 2.0 x Stent 22 stent ([id number]) 13:05:17 Inflate Prox CX EUPHORA 2.0 x 1 15 00:10 balloon 20 Balloon ([id number]) 13:05:46 Reinflate Prox CX EUPHORA 2.0 x 2 19 00:10 balloon 20 Balloon ([id number]) 13:07:26 Place stent Prox CX JAIME RX 2.0 x 3 17 00:10 22 stent ([id number]) 13:11:11 Place stent Prox LAD JAIME RX 2.75 x 1 17 00:10 12 stent ([id number]) Device Usage Item Name Manufacture Quantity Catalog Number Hospital Part Current M inimal Lot# / Charge Number Stock Stock Serial# Code ACIST Syringe Acist 1 06052 202206 686649 847054 2 0 (92238) Medical Systems Inc Bag Decanter Microtek 1 253007 47878 211972 5 () Medical Inc. Medline Cath Medline 1 [id number] 473313 10644 014483 5 Pack ([id number]) ACIST Hand Acist 1 44619 806965 784805 111936 5 Control Medical (59867) Systems Inc ACIST Manifold Acist 1 72377 995045 443388 943452 5 (20522) Medical Systems Inc Tegaderm 4 x 4 3M 1 1626W 949461 438355 077309 5 (1626W) EMERALD Guide Cardinal 1 502-455 173090 055710 684968 5 Wire (502-455) Health CHOICE PT Bethesda 1 [id number] 950977 973686 547362 5 Extra Support Scientific 182cm wire ([id number]) SHEATH 7FR Terumo 1 PHB772 688379 169829 801898 5 Dunnigan (EWJ458) INFLATOR Merit Merit 1 SJ2661 957853 088179 321986 1 5 GiftCard.com (DJ3075) GUIDE 7FR HS Medtronic 1 [id number] 369325 752128 744192 0 II SH catheter ([id number]) EUPHORA 2.5 x Medtronic 1 [id number] 566197 982448 393307 5 [id number] 25 Balloon ([id number]) JAIME RX 2.5 x Medtronic 2 [id number] 565802 0260189 403944 5 [id number] 38 stent [id number] ([id number]) JAIME RX 2.75 x Medtronic 1 [id number] 831542 9252072 036383 5 [id number] 38 stent ([id number]) GUIDE 7FR EBU Medtronic 1 [id number] 203770 466194 286079 0 3.5 SH catheter ([id number]) JAIME RX 2.0 x Medtronic 1 [id number] 095593 0231245 729254 5 [id number] 22 stent ([id number]) EUPHORA 2.0 x Medtronic 1 [id number] 888832 118304 258123 5 [id number] 20 Balloon ([id number]) JAIME RX 2.75 x Medtronic 1 [id number] 709053 3286568 363072 5 [id number] 12 stent ([id number]) EXOSEAL 7Fr Cardinal 1 EX700 854930 881280 235959 5 (EX700) Health Signature Audit Lyle Stage Time Signature Unsigned Intra-Procedure 08/06/2019 Brandie Bell 1:21:53 PM RT(R) Intra-Procedure 08/06/2019 Heath 1:25:39 PM Henny MARTINEZ Intra-Procedure 08/06/2019 Christian Bishop 1:28:55 PM [place] [address] [place] [address]
[~2019-08-06 09:23] MED LIST changes: -CONSTULOSE PO; -NITROQUICK0.4 MG SL; -PHENERGAN6.25 MG/5 PO; -PLAVIX75 MG PO; -ZOFRAN ODT4 MG/UDTAB PO
[2019-08-06] MEDS ORDERED: NITROQUICK0.4 MG SL (09:49)
[2019-08-06] MEDS ORDERED: PHENERGAN6.25 MG/5 PO (09:49)
[2019-08-06] MEDS ORDERED: ZOFRAN ODT4 MG/UDTAB PO (09:50)
[2019-08-06] MEDS ORDERED: CONSTULOSE PO (09:54)
[2019-08-06 10:02] VITALS: BP 195/108; Ht 157.5 cm; Wt 63.6 kg
[2019-08-06 10:43] LABS: CALCIUM 9.9 mg/dL (8.5-10.1); CREATININE - SERUM 7.8 mg/dL (0.6-1.3); HEMATOCRIT 43.7 % (36.0-48.0); HEMOGLOBIN 14.6 g/dL (12-16); LYMPHOCYTES 23.3 % (15-50); MCH 35.3 pg (26.0-34.0); MCHC 33.4 g/dL (31.0-37.0); MCV 105.6 fL (80.0-100.0); MEAN PLATELET VOLUME 10.8 fL (7.4-10.4); NEUTROPHILS 68.4 % (40-80); PLATELET COUNT 210 10x3/uL (130-400); RBC 4.14 10x6/uL (4.00-5.40); RDW 13.3 % (11.5-14.5); WBC 7.9 10x3/uL (4.8-10.8)
[2019-08-06 10:44] LABS: HCG SERUM NEGATIVE (NEGATIVE)
--- NOTE | 2019-08-06 13:35 | NUR ---
PT ARRIVED BY STRETCHER. PLACED ON MONITOR. ASSESSMENT COMPLETED. PT SUPINE. FAMILY AT BEDSIDE. DR STAPLETON ROUNDED AND SPOKE WITH PT'S FAMILY. CALL LIGHT WITHIN REACH.
--- NOTE | 2019-08-06 13:50 | NUR ---
PT RESTING COMFORTABLY. FAMILY AT BEDSIDE. CALL LIGHT WITHIN REACH. RIGHT GROIN DRESSING C/D/I. NO S/S OF HEMATOMA NOTED. PT HYPERTENSIVE DURING AND AFTER PROCEDURE. WILL NOTIFY PHYSICIAN AND TREAT ORDERED.
[2019-08-06] MEDS ORDERED: PLAVIX75 MG PO (13:52)
--- NOTE | 2019-08-06 14:10 | NUR ---
PT ABLE TO TOLERATE SIPS OF WATER. MORE ALERT. CLONIDINE GIVEN PER MD ORDERS. WILL MONITOR BP TREND. RIGHT GROIN DRESSING C/D/I. NO S/S OF HEMATOMA NOTED.
--- NOTE | 2019-08-06 14:30 | NUR ---
PT C/O CRAMPING TO RIGHT THIGH. RIGHT GROIN DRESSING C/D/I. NO S/S OF HEMATOMA NOTED. PT LOG ROLLED AND PILLOW PLACED UNDER RIGHT SIDE TO REPOSTION FOR COMFORT. CALLED AND RECEIVED ORDER FOR PAIN MEDICATION. FAMILY AT BEDSIDE. CALL LIGHT WITHIN REACH.
--- NOTE | 2019-08-06 14:50 | NUR ---
PT REPORTS FEELING MORE COMFORTABLY. BP 192/124. HR 113. RIGHT GROIN DRESSING C/D/I. NO S/S OF HEMATOMA NOTED. CALL LIGHT WITHIN REACH. FAMILY AT BEDSIDE ASSISTING PT IN EATING A SANDWICH. DENIES NAUSEA AT THIS TIME.
--- NOTE | 2019-08-06 15:20 | NUR ---
PT RESTING COMFORTABLY. VSS. RIGHT GROIN DRESSING C/D/I. NO S/S OF HEMATOMA NOTED. CALL LIGHT WITHIN REACH. FAMILY AT BEDSIDE. REPORTS PAIN IS NOW 3/10 AND IMPROVING.
--- NOTE | 2019-08-06 15:50 | NUR ---
PT SLEEPING. RIGHT GROIN DRESSING C/D/I. NO S/S OF HEMATOMA NOTED. FAMILY AT BEDSIDE. BP 163/106. HR 91. RESP 16. O2 SAT 96%. WILL CONTINUE TO MONITOR.
--- NOTE | 2019-08-06 16:30 | NUR ---
RIGHT GROIN DRESSING C/D/I. NO S/S OF HEMATOMA NOTED. CALL LIGHT WITHIN REACH. ASSESSMENT COMPLETED. VSS. HEAD OF BED INC TO 30 DEGREES. TOLERATED WELL. WILL CONTINUE TO MONITOR.
--- NOTE | 2019-08-06 17:08 | NUR ---
PIV D/C'D WITH CATH TIP INTACT. TOLERATED WELL. VSS. RIGHT GROIN DRESSING C/D/I. NO S/S OF HEMATOMA NOTED. DISCUSSED DISCHARGE INSTRUCTIONS WITH PT AND PT'S FAMILY. THEY VOICED UNDERSTANDING. DISCUSSED PLAVIX AND IMPORTANCE OF FILLING PRESCRIPTION AND STARTING MEDICATION TOMORROW. THEY VOICED UNDERSTANDING. PT INSTRUCTED TO GET UP AND DRESSED. FAMILY AT BEDSIDE TO ASSIST.
--- NOTE | 2019-08-06 17:20 | NUR ---
PT TAKEN OUT TO VEHICLE BY WHEELCHAIR. NO S/S OF DISTRESS NOTED. ALL BELONGINGS AND PAPERWORK IN HAND.
--- NOTE | 2019-08-07 12:08 | OP ---
PATIENT NAME: SHAI AVILES MEDICAL RECORD: [id number] :85 LOCATION:D.CAT ADMISSION DATE: SURGEON: APOORVA STAPLETON MD DATE OF OPERATION: 08/06/2019 PROCEDURES: 1. PTCA stent RCA. 2. PTCA stent LAD. 3. PTCA stent of the left circumflex. INDICATION: Angina and coronary artery disease. PROCEDURE IN DETAIL: After informed consent was obtained and after a detailed description of risks, benefits as well as alternative therapies, the patient elected to proceed with angiogram and angioplasty. The right femoral area was prepped and draped in normal sterile fashion. Right femoral artery was cannulated via modified Seldinger technique with placement of 7-Wolof sheath. All catheters exchanged through this sheath. FINDINGS: Ms. Aviles has severe 3-vessel coronary artery disease, was turned down for bypass surgery. Stenting of the RCA was undertaken with a 2.5 x 38 Kyle, 2.5 x 38 Kyle, 2.75 x 38 Kyle going from initial multiple areas of 95% to 99% stenosis to 0% residual. The left circumflex was addressed with a 2.0 x 22 mm Kyle going from 90% to 95% initial stenosis to 0% residual. The left anterior descending had plaque shift into the ostium causing 90% stenosis after stenting of the circumflex. This was addressed with a 2.75 x 12 mm [place]. Result was 0% residual stenosis. OVERALL IMPRESSION: Successful PTCA stent RCA, LAD and left circumflex all going from greater than 90% initial stenosis to 0% residual. TRANSINT:[id number] Voice Confirmation ID: [id number] DOCUMENT ID: [id number] APOORVA STAPLETON MD at 1208 CC: [id number] DICTATION DATE: 08/06/19 1320 GRAIN WEIGHER: 08/06/19 1359 DEP CLI 08/06/19 [place] [id number] [place] [id number]
== END 2019-08-06 17:20 | disposition home or self-care (01) ==
LOC: D.CATH 09:23 → D.CLR 09:40 → D.CATH 12:00
PROVIDERS: ATTEND Internal Medicine Interventional Cardiology
DX: I25.110 Atherosclerotic heart disease of native coronary artery with unstable angina pectoris (principal); N18.6 End stage renal disease
CPT/HCPCS: C9600 ×3

== ENCOUNTER 2020-07-27 11:39 | Inpatient (IN) | payer MEDICARE ==
[~2020-07-27] VITALS: Ht 157.5 cm; Wt 74.1 kg
[2020-07-27] VITALS (7 sets, daily range): BP systolic 129–198; BP diastolic 69–114; BMI 28.8
--- NOTE | ~2020-07-27 | HEMODYNAMI ---
PATIENT:SHAI ADAME MEDICAL RECORD: [id number] : 85 LOCATION:[place] [address] ADMISSION DATE: 07/27/20 Generatedon:07/28/202012:13 Patient name: SHAI ADAME Patient #: [id number] SSN: [id number] : 1985 Date of study: 07/27/2020 Page: Of Hemodynamic Procedure Report Patient Data Patient Demographics Procedure consent was obtained First Name: SHAI Gender: Female Last Name: DEEP : 1985 Patient #: [id number] Age: 35 year(s) Race: Black SSN: [id number] Additional ID: [id number] Contact details [address]: [address] [place] [address] State: [place] City: [place] Zip code: [address] Past Medical History Allergies Allergen Reaction Date Comments Reported Other allergy 07/09/2019 LATEX, LEMON, PASKENTA, PCN, FENTANYL Other allergy 08/06/2019 latex, PCN, Fentanyl, Lemon/Yocha Dehe Other allergy 12/21/2019 PCN, LEMON, PASKENTA, FENTANYL,LATEX Admission Admission Data Admission Date: 07/27/2020 Admission Time: 19:03 Arrival Date: 07/27/2020 Arrival Time: 13:30 Room #: [facility] #: [id number] Procedure Procedure Types Cath Procedure Diagnostic Procedure C [facility] w/Coronaries Procedure Description Procedure Date Procedure Date: 07/27/2020 Procedure Start Time: 13:07 Procedure End Time: 14:00 Procedure Staff Name Function Brandie Bell RT Monitor Jorge Hernadez MD Performing Physician Elizabeth Grande RT Scrub Eliazbeth Grande RT Monitor Heath Inman RN Nurse Jose Manuel Worley CRNA Additional personnel Procedure Data Cath Procedure Fluoroscopy Diagnostic fluoroscopy Total fluoroscopy Time: 1.8 time: 1.8 min min Diagnostic fluoroscopy Total fluoroscopy dose: 236 dose: 236 mGy mGy Contrast Material Contrast Material Type Amount (ml) Isovue 300 58 Entry Location Entry Primary Successful Side Size Upsize Upsize Entry Closure Succes sful Closure Location (Fr) 1 (Fr) 2 (Fr) Remarks Device Remarks Femoral Right 5 Fr Exoseal artery Estimated blood loss: 5 ml Diagnostic catheters Device Type Used For End Catheter Placement MULTIPACK JL 4.0 5Fr Left Coronary catheter Angiography MULTIPACK 3DRC 5Fr Right Coronary catheter Angiography MULTIPACK Pigtail 5 Fr Right Coronary catheter Angiography Procedure Medications Medication Administration Route Dosage 0.9% NaCl I.V. 100 ml/hr Oxygen etCO2 Nasal cannula 3 l/min Heparin Flush Bag added to field 2 bags (1000units/500ml NS) Lidocaine 2% added to field 20 Hemodynamics Rest Heart Rate: 111 (bpm) Pressure Samples Time Site Value (mmHg) Purpose Heart Use Rate(bpm) 13:27 LV 221/23,30 Snapshot 95 13:28 AO 225/40(137) Pullback 103 Gradients Valve Time Site Site 2 Mean SEP/DFP Peak To Heart Use 1 (mmHg) (sec/min) Peak Rate (mmHg) (bpm) Aortic 13:28 LV AO 20 52 103 225/40(137) Calculations Valve P-P Mean Valve Index Valve Source Name Gradient Area Flow (cm2) Aortic 20 20 Snapshots Pre Cath Intra NCS Post Cath Vital Signs Time Heart Resp SPO2 etCO2 NIBP (mmHg) Rhythm Pain Sedation Rate (ipm) (%) (mmHg) Status Level (bpm) 12:38:14 108 24 100 30.7 208/136(175) NSR 0 (11) 10(A) , No pain 12:42:50 104 26 90 28.4 210/124(170) NSR 0 (11) 10(A) , No pain 12:53:36 98 19 94 30.7 158/105(135) NSR 0 (11) 10(A) , No pain 12:58:49 88 7 100 28.5 151/93(125) NSR 0 (11) 10(A) , No pain 13:03:07 93 8 100 17.9 136/96(118) NSR 0 (11) 7(A) , No pain 13:07:17 94 22 92 28.4 137/97(122) NSR 0 (11) 7(A) , No pain 13:11:31 94 24 86 29.2 138/84(116) NSR 0 (11) 7(A) , No pain 13:15:47 84 18 100 26.2 127/79(101) NSR 0 (11) 7(A) , No pain 13:19:55 101 29 57 137/91(117) NSR 0 (11) 7(A) , No pain 13:25:12 105 17 100 202/127(159) NSR 0 (11) 7(A) , No pain 13:29:45 103 16 100 193/119(156) NSR 0 (11) 7(A) , No pain 13:34:13 109 12 100 194/125(163) NSR 0 (11) 7(A) , No pain 13:38:29 111 18 100 159/110(145) NSR 0 (11) 7(A) , No pain 13:43:28 108 15 100 Measuring NSR 0 (11) 7(A) , No pain 13:43:57 108 20 65 117/74(111) NSR 0 (11) 7(A) , No pain Medications Time Medication Route Dose Verified Delivered Reason Notes Eff ectiveness by by 12:38:05 0.9% NaCl I.V. 100 Heath Heath Per ml/hr Henny Inman physician RN RN 12:38:16 Oxygen etCO2 3 Heath Heath for low 02 Nasal l/min Henny Inman sats cannula RN RN 12:38:30 Heparin Flush added 2 Heath Heath used for Bag to bags Henny Inman procedure (1000units/500ml field RN RN NS) 12:38:48 Lidocaine 2% added 20ml Heath Heath for local to vial Henny Inman anesthetic field RN granulator tender Log Time Note 12:28:28 Diagnostic Cath Status : Elective 12:29:55 Arrival Date: 07/27/2020 1:30:00 PM 12:32:10 Procedure Status Elective Heart Cath (OP). 12:32:13 Elizabeth PEARSON(R) sent for patient. Start room use. 12:32:14 Time tracking: Regular hours (M-F 7:00 - 5:00) 12:32:17 Plan of Care:Hemodynamics will remain stable., Cardiac rhythm will remain stable., Comfort level will be maintained., Respiratory function will remain adequate., Patient/ family verbilizes understanding of procedure., Procedure tolerated without complication., Recovers from procedure without complications.. 12:32:22 Patient received from Pre/Post Procedure Room to CCL 2 Alert and oriented. Tansferred to table in Supine position. 12:32:24 Warm blankets applied, and alecia hugger turned on for patient comfort. 12:32:25 Signed procedure consent form obtained from patient. 12:32:26 Correct patient and procedure confirmed by team. 12:32:27 ECG and BP/O2 sat monitors applied to patient. 12:35:40 Vital chart was started 12:35:41 Baseline sample Acquired. 12:35:44 Jose Manuel Worley CRNA present and monitoring patient for TIVA. 12:35:56 Rhythm: sinus tachycardia 12:35:58 Full Disclosure recording started 12:36:03 H&P Date Dictated: 07/27/2020 Within 30 days and on chart., H&P Addendum completed by physician on day of procedure. (MUST COMPLETE FOR ALL OUTPATIENTS). 12:36:05 Pre-procedure instructions explained to patient. 12:36:06 Pre-op teaching completed and patient verbalized understanding. 12:36:08 Family in patients room. 12:36:09 Patient NPO since Midnight. 12:36:18 Is the patient allergic to Iodine/contrast media? No. 12:36:19 Was the patient premedicated? Yes 12:36:20 Is patient on blood thinner?Yes 12:36:22 ACC The patient was administered the following blood thiners within the last 24 hours: ACCPlavix 12:36:25 Patient diabetic? No. 12:36:28 Previous problem with sedation/anesthesia? No ? 12:36:29 Snore? Yes 12:36:30 Sleep apnea? Yes 12:36:31 Deviated septum? No 12:36:32 Sticks out tongue? Yes 12:36:32 Opens mouth fully? Yes 12:36:37 Airway obstruction? Yes asthma 12:36:41 Dentures? No ? 12:36:45 Pre procedure: right dorsailis pedis pulse 2+ Normal; easily identifiable; not easily obliterated 12:36:47 Pre procedure: left dorsailis pedis pulse 2+ Normal; easily identifiable; not easily obliterated 12:36:49 Patient pain scale 0/10 ?. 12:37:01 IV patent on arrival in right forearm with 0.9% NaCl at [facility]. 12:37:22 Lab results completed and on chart. 12:38:05 0.9% NaCl 100 ml/hr I.V. was administered by Heath Inman RN; Per physician; Verbal order read back and verified. 12:38:08 Right groin area was prepped with chlora-prep and draped in sterile fashion 12:38:09 Sharps counted by scrub and verified by R.N. 12:38:09 Alarms reviewed by R. N. 12:38:16 Oxygen 3 l/min etCO2 Nasal cannula was administered by Heaht Inman RN; for low 02 sats; Verbal order read back and verified. 12:38:30 Heparin Flush Bag (1000units/500ml NS) 2 bags added to field was administered by Heath Inman RN; used for procedure; Verbal order read back and verified. 12:38:48 Lidocaine 2% 20ml vial added to field was administered by Heath Inman RN; for local anesthetic; Verbal order read back and verified. 12:41:28 Stress Test: no; N/A ? 12:41:47 [facility] program not responding 12:59:34 --------ALL STOP TIME OUT------ 12:59:34 Physician arrived 12:59:35 Final Timeout: patient, procedure, and site verified with staff and physician. All members of the team are in agreement. 12:59:37 Right groin site verified by team. 12:59:40 Fire Safety Assessment: A--An alcohol-based skin anteseptic being used preoperatively., C--Open oxygen or nitrous oxide is being used., D--An ESU, laser, or fiber-optic light is being used. 12:59:43 Physical assessment completed. ASA score P 2 - A patient with mild systemic disease as per Jorge Hernadez MD. 12:59:47 5) <15 or on dialysis Very severe, or end stage kidney failure. 13:02:27 Maximum allowable contrast dose (3.7 X eGFR X 0.75)16 ml. 13:02:32 Sedation plan: TIVA Medication:Propofol 13:02:37 Use device set Femoral Dx 13:02:38 Medline Cath Pack ([id number]) opened to sterile field. 13:02:38 Bag Decanter (2002S) opened to sterile field. 13:02:38 ACIST Syringe (11140) opened to sterile field. 13:02:39 ACIST Hand Control (87132) opened to sterile field. 13:02:40 DIAGNOSTIC Multipack 5Fr catheter set (FW3569) opened to sterile field. 13:02:40 ACIST Manifold (68752) opened to sterile field. 13:02:41 Tegaderm 4 x 4 (1626W) opened to sterile field. 13:02:42 SHEATH 5FR Jewett (COP377) opened to sterile field. 13:02:43 EMERALD Guide Wire (332-717) opened to sterile field. 13:07:37 Procedure started. 13:07:40 Local anesthetic to right femoral artery with Lidocaine 2% by Jorge Hernadez MD.INITIAL ACCESS ONLY 13:11:51 MICROPUNCTURE 4FR NetManage (W10598) opened to sterile field. 13:14:26 Access obtained with 4Fr micropunture. 13:14:44 A 5 Fr sheath was inserted into the Right Femoral artery 13:15:11 A MULTIPACK JL 4.0 5Fr catheter was advanced over the wire and used for Left Coronary Angiography. 13:16:04 LCA angiography performed. 13:16:07 Injector settings: Ml/sec: 3, Volume: 6, 13:16:34 Catheter removed. 13:17:46 A MULTIPACK 3DRC 5Fr catheter was advanced over the wire and used for Right Coronary Angiography. 13:22:22 RCA angiography performed. 13:22:24 Injector settings: Ml/sec: 3, Volume: 6, 13:26:30 Catheter removed. 13:26:39 A MULTIPACK Pigtail 5 Fr catheter was advanced over the wire and used for Right Coronary Angiography. 13:28:01 LV hemodynamics recorded. 13:28:02 LV gram done using REYNA 13:28:04 Injector settings: Ml/sec: 5, Volume: 15, 13:28:10 EF : 50 % 13:29:17 Catheter removed. 13:29:21 EXOSEAL 5Fr (EX500) opened to sterile field. 13:29:31 Sheath removed intact; hemostasis achieved with Exoseal to the Right Femoral artery. 13:30:49 Procedure ended.(Physican Out) 13:33:33 Fluoroscopy time 01.80 minutes. 13:34:15 Fluoroscopy dose: 236 mGy 13:34:15 Flurop Dose total: 236 13:34:34 Dose Area Product 1764 mGy/cm. 13:34:54 Contrast amount:Isovue 300 58ml. 13:34:56 Sharps counted by scrub and verified by R.N. 13:34:56 Maximum allowable dose exceeded? No. 13:35:01 Insertion/operative site no bleeding no hematoma. 13:35:17 Post-op/insertion site Right Femoral artery dressed using a 4 x 4 and Tegaderm. 13:37:37 Post Procedure Pulses reassessed and unchanged 13:41:15 patient started vomiting during procedure; TELETRAY OPERATOR intubated patient; Dr Hernadez ordered stat chest XRAY; hothouse worker notified 13:41:27 Post procedure rhythm: unchanged. 13:41:29 Estimated blood loss: 5 ml 13:41:31 Patient needs reinforcement of post procedure teaching. 13:41:31 Post procedure instruction explained to patient.Patient verbalizes understanding. 13:41:45 Procedure and supply charges have been captured, reviewed, submitted and are correct. 13:43:55 Vital chart was stopped 13:44:00 [facility] Findings: MVD- MD will discuss options w/ pt 13:44:02 Operative report dictated upon procedure completion. 13:44:03 See physician's report for complete and final results. 13:48:29 patient extubated 13:59:58 patient transferred to pre/post procedure area awaiting CVICU bed 14:00:32 Patient transfered to Pre/Post Procedure Room with Stretcher. 14:00:51 Full Disclosure recording stopped 14:00:51 Procedure ended. 14:00:56 End room use (Document Last) 14:05:15 End room use (Document Last) 14:05:51 End room use (Document Last) Device Usage Item Name Manufacture Quantity Catalog Hospital Part Current Minimal Lot# / Number Charge Number Stock Stock Serial# Code ACIST Syringe Acist 1 10202 652539 495955 668519 20 (37966) Medical Systems Inc Bag Decanter Microtek 1 704352 26588 557583 5 () Medical Inc. Medline Cath Medline 1 [id number] 640593 04208 782359 5 Pack ([id number]) ACIST Hand Acist 1 51685 889737 543090 607715 5 Control Medical (36925) Systems Inc ACIST Acist 1 21732 115147 627850 336545 5 Manifold Medical (72336) Systems Inc DIAGNOSTIC Cardinal 1 [id number] 632890 79267 247405 30 Multipack 5Fr Health catheter set (TT6818) Tegaderm 4 x 3M 1 1626W 012062 322145 191420 5 4 (1626W) SHEATH 5FR Terumo 1 [id number] 933193 354077 863750 5 Jewett (NSG965) EMERALD Guide Cardinal 1 502-455 700377 793340 926772 5 Wire Health (502-455) MICROPUNCTURE Cook Medical 1 F49575 939372 344667 781069 5 4FR Cook (T43277) MULTIPACK JL Cardinal 1 640094 5 4.0 5Fr Health catheter MULTIPACK Cardinal 1 252669 5 3DRC 5Fr Health catheter MULTIPACK Cardinal 1 233370 5 Pigtail 5 Fr Health catheter EXOSEAL 5Fr Cardinal 1 EX500 808576 134123 755760 10 (EX500) Health Signature Audit [place] Stage Time Signature Unsigned Intra-Procedure 07/27/2020 Brandie Bell 2:05:15 PM RT(R) Intra-Procedure 07/27/2020 Heath 2:05:51 PM Henny MARTINEZ Intra-Procedure 07/27/2020 Jorge Hernadez MD 2:07:45 PM 07/28/2020 12:12:54 PM Intra-Procedure 07/28/2020 Jorge Hernadez MD 12:13:24 PM Signatures Monitor : Brandie Bell RT Signature : Date : Time : Performing Physician : Signature : Jorge Hernadez MD Date : Time : Monitor : Elizabeth Grande Signature : RT Date : Time : Nurse : Heath Lorigan Signature : RN Date : Time : [address] [place] [address]
[~2020-07-27 11:39] MED LIST changes: +BACTRIM 400-801 TAB PO; +CONSTULOSE PO; +GABAPENTIN300 MG PO; +HYDRALAZINE HC100 MG PO; +NITROQUICK0.4 MG SL; +PHENERGAN6.25 MG/5 PO; +PHOSLO667 MG PO; +PLAVIX75 MG PO; +ZOFRAN ODT4 MG/UDTAB PO
[2020-07-27 12:28] LABS: BASOPHILS 0.2 % (0-2); EOSINOPHILS 1.9 % (0-7); HEMATOCRIT 37.8 % (36.0-48.0); HEMOGLOBIN 12.1 g/dL (12-16); IMMATURE GRANULOCYTES 0.2 % (0-5); LYMPHOCYTES 24.4 % (15-50); MCH 34.9 pg (26.0-34.0); MCV 108.9 fL (80.0-100.0); MEAN PLATELET VOLUME 10.2 fL (7.4-10.4); MONOCYTES 7.8 % (2-11); NEUTROPHILS 65.5 % (40-80); RBC 3.47 10x6/uL (4.00-5.40); RDW 12.4 % (11.5-14.5); WBC 8.6 10x3/uL (4.8-10.8)
[2020-07-27 12:30] LABS: PLATELET COUNT 255 10x3/uL (130-400)
[2020-07-27 12:40] LABS: HCG SERUM NEGATIVE (NEGATIVE)
[2020-07-27 12:41] LABS: ANION GAP 15.4 mmol/L (8-16); CALCIUM 8.8 mg/dL (8.5-10.1); CARBON DIOXIDE 25.8 mmol/L (21.0-32.0); CHOL - HDL RATIO 4.2 ratio (2.3-4.1); CREATININE - SERUM 8.6 mg/dL (0.6-1.3); LDL-HDL RATIO 2.9 ratio (1.5-3.5); POTASSIUM - SERUM 5.2 mmol/L (3.5-5.1)
--- NOTE | 2020-07-27 14:10 | NUR ---
PT ARRIVED BY STRETCHER. PLACED ON MONITORS. ANESTHESIA AT BEDSIDE TO ASSESS PT AND UPDATE PT'S MOM ON PT. PT ON 10L SIMPLE MASK. PT IS RESTLESS AND AGGITATED. ATTEMPTED TO KEEP CALMED DOWN. VERY TEARFUL COMING OUT OF ANESTHESIA. CALL LIGHT WITHIN REACH. FAMILY AT BEDSIDE.
--- NOTE | 2020-07-27 14:25 | NUR ---
PT IN SUPINE POSITION. HR 109. BP 216/137. PT IS STILL TEARFUL. RIGHT GROIN DRESSING C/D/I. NO S/S OF HEMATOMA NOTED. CALL LIGHT WITHIN REACH.
--- NOTE | 2020-07-27 14:54 | NUR ---
RIGHT GROIN DRESSING C/D/I. NO S/S OF HEMATOMA NOTED. CALL LIGHT WITHIN REACH. RIGHT PEDAL PULSE PALPABLE. HR 118 SINUS TACH. RESP 12. O2 SAT 95% ON 4LNC
--- NOTE | 2020-07-27 15:06 | NUR ---
RIGHT GROIN DRESSING C/D/I. NO S/S OF HEMATOMA NOTED. CALL LIGHT WITHIN REACH. VSS. HR 108. BP 109/103. TRENDING DOWN. PT IS MORE CALM. RIGHT PEDAL PULSE IS PALPABLE. PT GIVEN ICE CHIPS. DENIES NAUSEA.
--- NOTE | 2020-07-27 15:28 | NUR ---
PT C/O BACK PAIN (CHRONIC). RATES IT A 7/10 AT THIS TIME. RIGHT GROIN DRESSING C/D/I. NO S/S OF HEMATOMA NOTED. PT DENIES NAUSEA AND TOLERATING ICE CHIPS. SET UP WITH TURKEY SANDWICH. SHE REPORTS SHE CANNOT TAKE HER PILLS ON AN EMPTY STOMACH. SO WE WILL GIVE HER HER PAIN MEDICATION SOON SHE IS ABLE TO EAT SOME FOOD.
--- NOTE | 2020-07-27 15:56 | NUR ---
RIGHT GROIN DRESSING C/D/I. NO S/S OF HEMATOMA NOTED. RIGHT PEDAL PULSE PALPABLE. PT AMBULATED TO RESTROOM AND HAD A BM. NO DIFFICULTY NOTED. PT'S MOTHER WENT HOME. PT HAS CELL PHONE, PHONE CAKE WRINGER, AND CLOTHING AT BEDSIDE. WILL TRANSPORT OVER TO [facility]. REPORT GIVEN TO JUAN MCCALL. PT TRANSPORTED TO NEW ROOM BY WHEELCHAIR WITH ALL BELONGINGS.
--- NOTE | 2020-07-27 16:20 | NUR ---
PT ARRIVED TO CVO2. ALERT ORIENTEDX4. PLACED ON MONITOR. PT HAS BEDLONGINGS IN BAD THAT WAS PLACED IN BATHROOM. PT REQUESTS TO HAVE HER PHONE AND ELECTROPHYSIOLOGIST AT BEDSIDE.
--- NOTE | 2020-07-27 17:00 | NUR ---
1700 PT STATES SHE DID NOT TAKE HER MORING BETABLOCKER THIS MORNING. PROVIDED ENCOURAGEMENT AND TEACHING SO THAT PT WOULD TAKE BB FOR RN. PT C/O OF SORE THROAT. PROVIDED SIPS OF WATER. PT SWALLOWED WITHOUT DIFFICULTY. NO S/S OF ASPIRATON NOTED. PT HR AND BP ELEVATED. WILL ADMINISTER PRN APRESOLINE ORDERED.
--- NOTE | 2020-07-27 20:41 | NUR ---
BEDSIDE REPORT RECEIVED. PT. IN THE BED, FEELING NAUSEOUS. DR. YOLI RAINES. ADMINISTERED MEDICATION FOR NAUSEA PRESCRIBED. NO FURTHER NEEDS EXPRESSED AT THIS TIME. WILL CONTINUE TO MONITOR CALL LIGHT IN REACH.
[2020-07-28] VITALS (24 sets, daily range): BP systolic 98–169; BP diastolic 41–92; BMI 28.8
[2020-07-28 05:16] LABS: BASOPHILS 0.1 % (0-2); EOSINOPHILS 3.8 % (0-7); HEMATOCRIT 35.6 % (36.0-48.0); HEMOGLOBIN 11.3 g/dL (12-16); IMMATURE GRANULOCYTES 2.2 % (0-5); LYMPHOCYTES 9.6 % (15-50); MCH 34.3 pg (26.0-34.0); MCHC 31.7 g/dL (31.0-37.0); MCV 108.2 fL (80.0-100.0); MEAN PLATELET VOLUME 10.4 fL (7.4-10.4); NEUTROPHILS 79.3 % (40-80); PLATELET COUNT 234 10x3/uL (130-400); RBC 3.29 10x6/uL (4.00-5.40); RDW 12.6 % (11.5-14.5)
[2020-07-28 05:17] LABS: WBC 13.4 10x3/uL (4.8-10.8)
[2020-07-28 05:33] LABS: ALBUMIN 3.2 g/dL (3.4-5.0); ANION GAP 16.9 mmol/L (8-16); BILIRUBIN - TOTAL 0.53 mg/dL (0.2-1.3); PROTEIN - SERUM 7.2 g/dL (6.4-8.2)
[2020-07-28 05:38] LABS: CREATININE - SERUM 10.8 mg/dL (0.6-1.3)
[2020-07-28 05:39] LABS: POTASSIUM - SERUM 6.9 mmol/L (3.5-5.1)
--- NOTE | 2020-07-28 07:00 | NUR ---
BEDSIDE REPORT RECEIVED. SHIFT ASSESSMENT COMPLETED PER FLOWSHEET, SEE FLOWSHEET FOR INFORMATION. PT RESTING IN BED WITH EYES CLOSED. PT REFUSED ABG FROM [facility] RT BECAUSE "THAT'LL HURT, I DON'T WANT IT". PT DENIES ANY NEEDS OR DISTRESS AT THIS TIME. VSS. WILL CONT TO MONITOR.
--- NOTE | 2020-07-28 09:15 | NUR ---
DIALYSIS NURSE AT BEDSIDE STARTING DIALYSIS. WILL CONT TO MONITOR.
--- NOTE | 2020-07-28 12:09 | NUR ---
DIALYSIS NURSE STOPPED DIALYSIS DUE TO P"PT CLOTTING". WILL CONT TO MONITOR.
[2020-07-28 15:17] LABS: PLT FUNCT.(P2Y12) PLAVIX 284 PRU (194-418)
--- NOTE | 2020-07-28 19:00 | NUR ---
ASSESSMENT COMPLETED PER FLOWSHEETS. PT A/OX4, SITTING BY BEDSIDE. DENIES ANY SOB OR DISCOMFORT AT THIS TIME. CALL LIGHT IN REACH. CPOC.
[2020-07-29] VITALS (29 sets, daily range): BP systolic 94–192; BP diastolic 47–107
--- NOTE | 2020-07-29 07:00 | NUR ---
ASSESSMENT DONE SEE FLOW SHEET VSS NO SIGNS OF ACUTE DISTRESS NOTED.
[2020-07-29 08:04] LABS: BASOPHILS 0.1 % (0-2); EOSINOPHILS 4.2 % (0-7); HEMATOCRIT 32.7 % (36.0-48.0); HEMOGLOBIN 10.4 g/dL (12-16); IMMATURE GRANULOCYTES 0.3 % (0-5); LYMPHOCYTES 16.3 % (15-50); MCH 34.4 pg (26.0-34.0); MCHC 31.8 g/dL (31.0-37.0); MCV 108.3 fL (80.0-100.0); MEAN PLATELET VOLUME 10.3 fL (7.4-10.4); MONOCYTES 6.9 % (2-11); NEUTROPHILS 72.2 % (40-80); PLATELET COUNT 198 10x3/uL (130-400); RBC 3.02 10x6/uL (4.00-5.40); RDW 12.6 % (11.5-14.5)
[2020-07-29 08:08] LABS: WBC 7.4 10x3/uL (4.8-10.8)
[2020-07-29 08:21] LABS: ANION GAP 17.5 mmol/L (8-16); BILIRUBIN - TOTAL 0.42 mg/dL (0.2-1.3); CARBON DIOXIDE 23.6 mmol/L (21.0-32.0); CREATININE - SERUM 8.9 mg/dL (0.6-1.3); POTASSIUM - SERUM 5.1 mmol/L (3.5-5.1); PROTEIN - SERUM 7.1 g/dL (6.4-8.2)
--- NOTE | 2020-07-29 11:00 | NUR ---
0900 MEDS GIVEN PER MAR. VSS. 1100 REASSESSMENT COMPLETE VSS.
--- NOTE | 2020-07-29 15:00 | NUR ---
Nutrition Follow-up: ESRD on HD- MWF Diet: Renal PO intake: 100% x all. She states that she is still hungry after eating all her meal trays. Last BM: none since admit. Wt: 160# (07/29/20); Admit Wt: 157.4# (07/27/20) Meds noted: probiotics, levaquin, phoslo Labs noted: Na 132(L), BUN 54(H), Cr 8.9(H), GFR 6(L), Glu 241(H) -Continue current diet for now. Noted glucose elevated. Patient had requested an additional hamburger and chicken strips with her dinner meal but she does not currently need the additional CHO 2/2 elevated blood sugar. Consider Renal ADA diet if glucose remains fouzia. -Monitor weights - following
--- NOTE | 2020-07-29 17:00 | NUR ---
PATIENT RESTING IN BED NO SIGNS OF ACUTE DISTRESS NOTED WILL CONTINUE TO MONITOR.
--- NOTE | 2020-07-29 18:56 | NUR ---
PATIENT COMPLAINS OF SOB. CHEST PAIN RADIATING TO LEFT ARM. DR. RHONDA YOO. EKG OBTAINED. WILL CONTINUE TO MONITOR.
--- NOTE | 2020-07-29 18:59 | NUR ---
PATIENT ASPIRATED. NC 2LPM PROVIDED. SINUS TACH NOTED. BP ELEVATED WILL CONTINUE TO MONITOR.
[2020-07-30] VITALS (21 sets, daily range): BP systolic 110–174; BP diastolic 52–105
[2020-07-30 07:09] LABS: BASOPHILS 0.3 % (0-2); EOSINOPHILS 4.4 % (0-7); HEMATOCRIT 34.3 % (36.0-48.0); HEMOGLOBIN 10.7 g/dL (12-16); IMMATURE GRANULOCYTES 0.1 % (0-5); LYMPHOCYTES 17.8 % (15-50); MCH 34.5 pg (26.0-34.0); MCHC 31.2 g/dL (31.0-37.0); MEAN PLATELET VOLUME 10.1 fL (7.4-10.4); NEUTROPHILS 70.4 % (40-80); PLATELET COUNT 211 10x3/uL (130-400); RDW 12.8 % (11.5-14.5); WBC 7.3 10x3/uL (4.8-10.8)
[2020-07-30 07:11] LABS: MCV 110.6 fL (80.0-100.0)
[2020-07-30 07:22] LABS: ALBUMIN 3.2 g/dL (3.4-5.0); ANION GAP 14.8 mmol/L (8-16); BILIRUBIN - TOTAL 0.43 mg/dL (0.2-1.3); CALCIUM 8.6 mg/dL (8.5-10.1); CARBON DIOXIDE 27.8 mmol/L (21.0-32.0); CREATININE - SERUM 6.8 mg/dL (0.6-1.3); POTASSIUM - SERUM 4.6 mmol/L (3.5-5.1); PROTEIN - SERUM 7.3 g/dL (6.4-8.2)
--- NOTE | 2020-07-30 18:18 | NUR ---
181: C/O NAUSEA AND TINGLING IN L ARM. O2 PLACED ON @ 2 LPM. ZOFRAN 4MG AND MORPHINE SULFATE 4MG IV.
--- NOTE | 2020-07-30 19:00 | NUR ---
REPORT RECEIVED. RECEIVED PATIENT IN BED, RESTING WITH EYES CLOSED. EASILY ROUSED AND ALERT. ASSESSMENT COMPLETED PER FLOW SHEET WITH NO ACUTE DISTRESS OBSERVED. MONITORS CONNECTED TO PATIENT. VSS. NSR ON MONITOR. DENIES CHEST PAIN OR NAUSEA AT PRESENT. WILL CONTINUE CURRENT POC
[2020-07-31] VITALS (21 sets, daily range): BP systolic 99–177; BP diastolic 57–105
[2020-07-31 08:29] LABS: BASOPHILS 0.2 % (0-2); EOSINOPHILS 4.1 % (0-7); HEMATOCRIT 34.7 % (36.0-48.0); IMMATURE GRANULOCYTES 0.3 % (0-5); LYMPHOCYTES 16.3 % (15-50); MCHC 31.7 g/dL (31.0-37.0); MCV 110.5 fL (80.0-100.0); MEAN PLATELET VOLUME 10.1 fL (7.4-10.4); MONOCYTES 7.9 % (2-11); NEUTROPHILS 71.2 % (40-80); PLATELET COUNT 233 10x3/uL (130-400); RBC 3.14 10x6/uL (4.00-5.40); RDW 12.7 % (11.5-14.5); WBC 8.8 10x3/uL (4.8-10.8)
[2020-07-31 08:49] LABS: ALBUMIN 3.4 g/dL (3.4-5.0); BILIRUBIN - TOTAL 0.66 mg/dL (0.2-1.3); CARBON DIOXIDE 29.5 mmol/L (21.0-32.0); PROTEIN - SERUM 7.1 g/dL (6.4-8.2)
[2020-07-31 08:50] LABS: ANION GAP 15.8 mmol/L (8-16); CREATININE - SERUM 9.7 mg/dL (0.6-1.3); POTASSIUM - SERUM 6.3 mmol/L (3.5-5.1)
--- NOTE | 2020-07-31 09:00 | NUR ---
0855: DR. PENA NOTIFIED OF CRITICAL POTASSIUM RESULTS. NEW ORDERS REC'D.
--- NOTE | 2020-07-31 15:46 | NUR ---
1545: CALLED INTO ROOM. REQUESTING TUMS FOR INDIGESTION AND L ARM TINGLING. MORPHINE 4 MG GIVEN IV AND O2 PLACED ON @ 2 LPM.
[2020-08-01] VITALS (23 sets, daily range): BP systolic 99–186; BP diastolic 54–971
[2020-08-01 04:39] LABS: BASOPHILS 0.2 % (0-2); EOSINOPHILS 3.6 % (0-7); HEMATOCRIT 33.4 % (36.0-48.0); HEMOGLOBIN 10.5 g/dL (12-16); IMMATURE GRANULOCYTES 0.4 % (0-5); LYMPHOCYTES 10.6 % (15-50); MCH 34.7 pg (26.0-34.0); MCHC 31.4 g/dL (31.0-37.0); MCV 110.2 fL (80.0-100.0); MEAN PLATELET VOLUME 10.4 fL (7.4-10.4); MONOCYTES 9.3 % (2-11); NEUTROPHILS 75.9 % (40-80); PLATELET COUNT 207 10x3/uL (130-400); RBC 3.03 10x6/uL (4.00-5.40); RDW 12.5 % (11.5-14.5); WBC 8.3 10x3/uL (4.8-10.8)
[2020-08-01 05:08] LABS: ALBUMIN 3.3 g/dL (3.4-5.0); BILIRUBIN - TOTAL 0.65 mg/dL (0.2-1.3); CALCIUM 8.4 mg/dL (8.5-10.1); CREATININE - SERUM 8.4 mg/dL (0.6-1.3); PROTEIN - SERUM 7.4 g/dL (6.4-8.2)
[2020-08-01 05:09] LABS: ANION GAP 10.9 mmol/L (8-16); POTASSIUM - SERUM 4.9 mmol/L (3.5-5.1)
--- NOTE | 2020-08-01 07:00 | NUR ---
BEDSIDE REPORT RECEIVED. SHIFT ASSESSMENT COMPLETED PER FLOWSHEET, SEE FLOWSHEET FOR INFORMATION. PT DENIES ANY NEEDS OR DISCOMFORT AT THIS TIME. PT SITTING UP IN BED WATCHING TV TALKING ON THE PHONE. VSS. WILL CONT TO MONITOR.
[2020-08-01 11:30] LABS: ERYTHROCYTE SEDIMENTATION RATE 59 mm/hr (0-20)
--- NOTE | 2020-08-01 11:50 | NUR ---
PT EXPIRENCING EMESIS ABOUT 50ML OF DARK GREEN COLORED FLUID NOTED. WILL CONT TO MONITOR.
--- NOTE | 2020-08-01 12:23 | NUR ---
Nutrition Follow-up: Pt reports eating some breakfast this AM but states that she did not eat yesterday with N/V. Noted pt with N/V today as well. Declines Nepro. Noted plans for possible CABG. Diet: Renal Wt: 165.3# (08/01) Last BM: 07/31 Labs noted: Glu 134, Ca 8.4, Alb 3.3, K+ 4.9 Meds noted: Pepcid, Protonix, Zofran, Florajen, Tums, Phoslo -Encourage PO intake and honor food preferences within diet restrictions. -Monitor wt. -RD following.
--- NOTE | 2020-08-01 19:00 | NUR ---
ASSESSMENT DONE SEE FLOW SHEET. VSS. TEACHING PROVIDED.
--- NOTE | 2020-08-01 21:00 | NUR ---
MEDS GIVEN PER MAR. NO SIGNS OF ACUTE DISTRESS NOTED.
--- NOTE | 2020-08-01 23:00 | NUR ---
REASSESSMENT DONE SEE FLOW SHEET. VSS. IV RESITED. 2X 20G PIV L AC.
[2020-08-02] VITALS (22 sets, daily range): BP systolic 103–179; BP diastolic 37–93; Ht 157.5 cm; Wt 74.1 kg
[2020-08-02 05:49] LABS: ANION GAP 13.1 mmol/L (8-16); CALCIUM 8.7 mg/dL (8.5-10.1); CARBON DIOXIDE 31.8 mmol/L (21.0-32.0); CREATININE - SERUM 6.9 mg/dL (0.6-1.3); POTASSIUM - SERUM 4.9 mmol/L (3.5-5.1)
[2020-08-02 05:56] LABS: ALBUMIN 3.5 g/dL (3.4-5.0); BILIRUBIN - TOTAL 0.55 mg/dL (0.2-1.3); MAGNESIUM - SERUM 2.2 mg/dL (1.8-2.4); PROTEIN - SERUM 7.3 g/dL (6.4-8.2)
[2020-08-02 06:01] LABS: BASOPHILS 0.3 % (0-2); EOSINOPHILS 4.1 % (0-7); HEMATOCRIT 33.7 % (36.0-48.0); HEMOGLOBIN 10.8 g/dL (12-16); IMMATURE GRANULOCYTES 0.3 % (0-5); LYMPHOCYTES 17.9 % (15-50); MCH 35.4 pg (26.0-34.0); MCV 110.5 fL (80.0-100.0); MEAN PLATELET VOLUME 10.3 fL (7.4-10.4); NEUTROPHILS 69.4 % (40-80); PLATELET COUNT 210 10x3/uL (130-400); RBC 3.05 10x6/uL (4.00-5.40); RDW 12.4 % (11.5-14.5); WBC 6.9 10x3/uL (4.8-10.8)
[2020-08-02 06:13] LABS: PLT FUNCT.(P2Y12) PLAVIX 284 PRU (194-418)
[2020-08-02 09:13] LABS: ANA REFLEX - DIRECT Negative (Negative)
--- NOTE | 2020-08-02 09:48 | NUR ---
0910: PT C/O LT SIDE CHEST DISCOMFORT THAT IS SHARP PAIN WITH LT HAND TINGLINESS. PT STATES SHE WONDERS IF IT IS REFLUX FROM BREAKFAST. 2L NC PLACED TO PT. SPOKE WITH SAI, CARDIOLOGY TERRITORY SERVICE REPRESENTATIVE, WHO STATED TO ADMIN PRN ZOFRAN TO SEE IF THAT HELPS AND IF NOT THEN DO A 1 TIME NITRO PASTE 1" AND SHE WILL BE BY SHORTLY TO SEE PT. ALSO STATED TO CONTINUE ADMIN PLAVIX. 0940: PT STATES DISCOMFORTS ARE GONE AND NO LONGER FEELS TINGLINESS. NOT ADMIN THE NITRO PASTE SINCE HAD SUBSIDED. PT SMILING AND VISITING WITH STAFF. VSS. WILL CONTINUE PLAN OF CARE.
--- NOTE | 2020-08-02 15:01 | NUR ---
PT C/O CHEST DISCOMFORT WITH LT ARM TINGLING. PRN ZOFRAN ADMIN, O2 IN PLACE. CARDIOLOGY PAGED.
--- NOTE | 2020-08-02 15:13 | NUR ---
5 MIN AFTER NITRO X 1 ADMIN PT RATES PAIN AT A 4/10. BLOOD PRESSURE AT 5 MIN CASTRO IS 138/68 WITH HR 99 SINUS, RR 11, PULSE OX 100% ON 2LNC. IMMEDIATELY BEFORE NITRO WAS ADMIN PTS BP WAS 156/83 WITH HR 100 SINUS.
--- NOTE | 2020-08-02 16:24 | NUR ---
BP 173/93, PRN APRESOLINE ADMIN.
--- NOTE | 2020-08-02 18:29 | NUR ---
C/O CHEST PAIN ("LIKE ELEPHANT ON CHEST RATED 10/10") WITH LT ARM TINGLING AND NAUSEA/VOMITING ASSICAIATED WELL. DR IRELAND HERE, ORDERS RECIEVED. SAI WITH CARDIOLOGY ALSO NOTIFED.
--- NOTE | 2020-08-02 22:15 | NUR ---
PT CONTINUES TO HAVE NAUSEA AND STATES THAT ZOFRAN HAS NOT BEEN HELPING. CELIA GARCIA, PROVIDED WITH UPDATE. ORDERS FOR COMPAZINE GIVEN AT THIS TIME. SEE MAR.
--- NOTE | 2020-08-02 23:25 | MORECARE ---
CASE MANAGEMENT DISCHARGE SUMMARY PATIENT: SHAI ADAME UNIT: [id number] ADM DATE: 07/27/20 AGE: 35 : [birth year] SEX: F [facility] AUTHOR: JANUARY AVILA PHYSICIAN: REFERRING PHYSICIAN: RHINA ELLIS M.D. DATE OF SERVICE: 08/02/20 Discharge Plan Patient Name: SHAI ADAME Facility: [facility]:[place] : 1985 Planned Disposition: Anticipated Discharge Date: Discharge Date: Expected LOS: Initial Reviewer: [email or web address] Initial Review Date: 07/27/2020 Generated: 08/03/20 12:25 am DCP- Discharge Planning Updated by [email or web address]: Mikayla Bianchi on 07/29/20 9:[address] CM attempted to see patient for discharge planning but at that time patient was experiencing Chest pain. CM will attempt to see patient at a later date for d/c planning / needs. Patient Name: SHAI ADAME Page [id number] at 2325 All edits/amendments must be made on the electronic document DICTATION DATE: 08/02/202324 EVENING ANCHOR: KIRILL 08/02/202324 RPT#: [id number] DC DATE: STATUS: ADM IN [facility] [address] [place] [address] END OF REPORT
[2020-08-03] VITALS (25 sets, daily range): BP systolic 104–159; BP diastolic 42–97
[2020-08-03 07:48] LABS: BASOPHILS 0.1 % (0-2); EOSINOPHILS 2.6 % (0-7); HEMOGLOBIN 9.7 g/dL (12-16); IMMATURE GRANULOCYTES 0.3 % (0-5); LYMPHOCYTES 13.3 % (15-50); MCH 34.5 pg (26.0-34.0); MCHC 31.3 g/dL (31.0-37.0); MCV 110.3 fL (80.0-100.0); MEAN PLATELET VOLUME 9.7 fL (7.4-10.4); MONOCYTES 7.2 % (2-11); NEUTROPHILS 76.5 % (40-80); PLATELET COUNT 192 10x3/uL (130-400); RBC 2.81 10x6/uL (4.00-5.40); RDW 12.4 % (11.5-14.5); WBC 8.9 10x3/uL (4.8-10.8)
[2020-08-03 08:21] LABS: ALBUMIN 3.2 g/dL (3.4-5.0); ANION GAP 16.5 mmol/L (8-16); BILIRUBIN - TOTAL 0.67 mg/dL (0.2-1.3); CALCIUM 8.7 mg/dL (8.5-10.1); CARBON DIOXIDE 27.8 mmol/L (21.0-32.0); POTASSIUM - SERUM 5.3 mmol/L (3.5-5.1); PROTEIN - SERUM 6.7 g/dL (6.4-8.2)
[2020-08-03 08:22] LABS: CREATININE - SERUM 9.8 mg/dL (0.6-1.3)
--- NOTE | 2020-08-03 09:00 | NUR ---
Pt with eyes closed. Arouses to voice. Did not eat breakfast. States that she doesn't have appetite. Does not want to take oral meds at this time since she doesn't have anything in her stomach.
--- NOTE | 2020-08-03 10:52 | NUR ---
Dialysis nurse at bedside.
--- NOTE | 2020-08-03 12:41 | NUR ---
Nutrition Follow-up: Pt sleeping soundly at time of visit this AM. Nursing reports that pt did not eat breakfast and that she does not have an appetite. Diet: Renal Wt: 162# (08/03) Last BM: 07/31 per chart Labs noted: K+ 5.3, Alb 3.2 Meds noted: Pepcid, Zofran, Protonix, Florajen, Tums, Phoslo, electrolyte protocol -Encourage PO intake and honor food preferences within diet restrictions. -Offer Nepro with meals. -Monitor wt. -RD following.
--- NOTE | 2020-08-03 14:09 | NUR ---
PO meds given. Pt refused zolof. Ate most of her lunch. Currently ambulating in room. No further needs at this time. Will continue to monitor.
--- NOTE | 2020-08-03 18:42 | MORECARE ---
CASE MANAGEMENT DISCHARGE SUMMARY PATIENT: SHAI ADAME UNIT: [id number] ADM DATE: 07/27/20 AGE: 35 : 85 SEX: F ROOM/BED: [facility] AUTHOR: JANUARY AVILA PHYSICIAN: REFERRING PHYSICIAN: RHINA ELLIS M.D. DATE OF SERVICE: 08/03/20 Discharge Plan Patient Name: SHAI ADAME Facility: [facility]:[place] : 1985 Planned Disposition: Acute Care Hospital Anticipated Discharge Date: Discharge Date: Expected LOS: Initial Reviewer: [email or web address] Initial Review Date: 07/27/2020 Generated: 08/03/20 7:42 pm DCP- Discharge Planning Updated by [email or web address]: Mikayla Bianchi on 07/29/20 9:[address] CM attempted to see patient for discharge planning but at that time patient was experiencing Chest pain. CM will attempt to see patient at a later date for d/c planning / needs. Last DP export: 08/02/20 10:25 p Patient Name: SHAI ADAME Page [id number] at 1842 All edits/amendments must be made on the electronic document DICTATION DATE: 08/03/201841 SLEEP MEDICINE PHYSICIAN: KIRILL 08/03/201841 RPT#: [id number] DC DATE: STATUS: ADM IN [place] [address] [place] [id number] END OF REPORT
--- NOTE | 2020-08-03 18:56 | MORECARE ---
CASE MANAGEMENT DISCHARGE SUMMARY PATIENT: SHAI ADAME UNIT: [id number] ADM DATE: 07/27/20 AGE: 35 : 85 SEX: F ROOM/BED: D.[facility] AUTHOR: AUSTIN,DOC PHYSICIAN: REFERRING PHYSICIAN: RHINA ELLIS M.D. DATE OF SERVICE: 08/03/20 Discharge Plan Patient Name: SHAI ADAME Facility: [facility]:[place] : 1985 Planned Disposition: Acute Care Hospital Anticipated Discharge Date: Discharge Date: Expected LOS: Initial Reviewer: [email or web address] Initial Review Date: 07/27/2020 Generated: 08/03/20 7:55 pm Comments DCP- Discharge Planning Updated by [email or web address]: Mikayla Bianchi on 08/03/20 5:[address] LATE ENTRY 08/02/20 Patient Name: SHAI ADAME Admission Status: Elective Accout number: [id number] Admission Date: 07-27-2020 : 1985 Admission Diagnosis:ATHSCL HEART DISEASE OF [place] COR ART W UNSTABLE ANG P Attending: RHINA ELLIS Current LOS: 7 Anticipated DC Date: Planned Disposition: Acute [facility] Primary Insurance: MEDICARE A & B Discharge Planning Comments: CM met with patient to complete initial dc planning assessment. CM educated patient on the CM role and verbal consent given by patient to complete assessment. Patient lives at home with family. Patient is independent. At discharge patient plans to return home and feels this is a safe discharge. CM discussed availability of home health, rehab services, and medical equipment. Patient denied known discharge needs at this time. At this time looks like the physicians are planning to have patient transferred to for CABG. CM will continue to follow and will assist as needed with dc plans/needs. Music Education Director: Mikayla Bianchi DCP- Discharge Planning Updated by [email or web address]: Mikayla Bianchi on 07/29/20 9:[address] CM attempted to see patient for discharge planning but at that time patient was experiencing Chest pain. CM will attempt to see patient at a later date for d/c planning / needs. DCPIA - Discharge Planning Initial Assessment Updated by [email or web address]: Mikayla Bianchi on 08/03/20 6:51 pm * Is the patient Alert and Oriented? Yes * How many steps to enter\exit or inside your home? * PCP BILL WHYTE * Pharmacy [facility] * Preadmission Environment Home with Family * ADLs Independent * Equipment None * List name and contact numbers for known caregivers / representatives who currently or will assist patient after discharge: CHIDI PALMER- [phone] * Verbal permission to speak to the caregivers and representatives has been obtained from the patient. Yes * Community resources currently utilized None * Please name any agencies selected above. [facility] * Additional services required to return to the preadmission environment? No * Can the patient safely return to the preadmission environment? Yes * Has this patient been hospitalized within the prior 30 days at any hospital? No Last DP export: 08/03/20 5:42 p Patient Name: SHAI ADAME Page 09540 at 1856 All edits/amendments must be made on the electronic document DICTATION DATE: 08/03/201855 EXPORT SPECIALIST: KIRILL 08/03/201855 RPT#: [id number] DC DATE: STATUS: ADM IN [facility] [address] [place] [address] END OF REPORT
--- NOTE | 2020-08-03 19:16 | MORECARE ---
CASE MANAGEMENT DISCHARGE SUMMARY PATIENT: SHAI ADAME UNIT: [id number] ADM DATE: 07/27/20 AGE: 35 : 85 SEX: F ROOM/BED: D.CV02 AUTHOR: AUSTIN,DOC PHYSICIAN: REFERRING PHYSICIAN: RHINA ELLIS M.D. DATE OF SERVICE: 08/03/20 Discharge Plan Patient Name: SHAI ADAME Facility: [facility]:[place] : 1985 Planned Disposition: Acute Care Hospital Anticipated Discharge Date: Discharge Date: Expected LOS: Initial Reviewer: [email or web address] Initial Review Date: 07/27/2020 Generated: 08/03/20 8:15 pm Comments DCP- Discharge Planning Updated by [email or web address]: Mikayla Bianchi on 08/03/20 6:[address] LATE ENTRY 08/02/20 Patient Name: SHAI ADAME Admission Status: Elective Accout number: [id number] Admission Date: 07-27-2020 : 1985 Admission Diagnosis:ATHSCL HEART DISEASE OF [place] COR ART W UNSTABLE ANG P Attending: RHINA ELLIS Current LOS: 7 Anticipated DC Date: Planned Disposition: Acute Care Hospital Primary Insurance: MEDICARE A & B Discharge Planning Comments: CM met with patient to complete initial dc planning assessment. CM educated patient on the CM role and verbal consent given by patient to complete assessment. Patient lives at home with family. Patient is independent. At discharge patient plans to return home and feels this is a safe discharge. CM discussed availability of home health, rehab services, and medical equipment. Patient denied known discharge needs at this time. At this time looks like the physicians are planning to have patient transferred to for CABG. CM will continue to follow and will assist as needed with dc plans/needs. Business Support Professional: Mikayla Bianchi Appended by Mikayla Bianchi on 08/03/2020 19:11 CDT: Dr. Pierre has requested CM to start transfer to [facility] for CABG. CM contacted [facility] transfer center [phone]. and gave the patient information and was told that if this wasn't an emergent transfer for CV surgeon. CM to call transfer center back in am and request to speak with either doctor Alfonso Cheng or Lisa Kennedy nurse. CM will continue to follow and assist DCP- Discharge Planning Updated by [email or web address]: Mikayla Bianchi on 07/29/20 9:[address] CM attempted to see patient for discharge planning but at that time patient was experiencing Chest pain. CM will attempt to see patient at a later date for d/c planning / needs. DCPIA - Discharge Planning Initial Assessment Updated by [email or web address]: Mikayla Bianchi on 08/03/20 6:51 pm * Is the patient Alert and Oriented? Yes * How many steps to enter\exit or inside your home? * PCP BILL WHYTE * Pharmacy [facility] * Preadmission Environment Home with Family * ADLs Independent * Equipment None * List name and contact numbers for known caregivers / representatives who currently or will assist patient after discharge: CHIDI PALMER- [phone] * Verbal permission to speak to the caregivers and representatives has been obtained from the patient. Yes * Community resources currently utilized None * Please name any agencies selected above. [facility] * Additional services required to return to the preadmission environment? No * Can the patient safely return to the preadmission environment? Yes * Has this patient been hospitalized within the prior 30 days at any hospital? No Last DP export: 08/03/20 5:56 p Patient Name: SHAI ADAME Page 22586 at 1916 All edits/amendments must be made on the electronic document DICTATION DATE: 08/03/201914 HOSPICE NURSE PRACTITIONER: KIRILL 08/03/201914 RPT#: [id number] DC DATE: STATUS: ADM IN [facility] [address] [place] [address] END OF REPORT
--- NOTE | 2020-08-03 19:23 | MORECARE ---
CASE MANAGEMENT DISCHARGE SUMMARY PATIENT: SHAI ADAME UNIT: [id number] ADM DATE: 07/27/20 AGE: 35 : 85 SEX: F ROOM/BED: D.02 AUTHOR: AUSTIN,DOC PHYSICIAN: REFERRING PHYSICIAN: RHINA ELLIS M.D. DATE OF SERVICE: 08/03/20 Discharge Plan Patient Name: SHAI ADAME Facility: [facility]:[place] : 1985 Planned Disposition: Acute Care Hospital Anticipated Discharge Date: Discharge Date: Expected LOS: Initial Reviewer: [email or web address] Initial Review Date: 07/27/2020 Generated: 08/03/20 8:22 pm Comments DCP- Discharge Planning Updated by [email or web address]: Mikayla Bianchi on 08/03/20 6:[address] CM tried to contact Dr. Crandall / nurse to find out if he was aware of potential transfer. The physicians all spoke of multiple situations and CM was notified at 13:30 that at this time per Dr. North. Plan is for patient to get more medically stable and transfer to floor and then they will work on transfer to [facility]. Since patient is needing a kidney transplant eventually that way she is receiving care from the same facility. CM will continue to follow and assist as needed with discharge planning / needs. DCP- Discharge Planning Updated by [email or web address]: Mikayla Bianchi on 08/03/20 6:[address] LATE ENTRY 08/02/20 Patient Name: SHAI ADAME Admission Status: Elective Accout number: [id number] Admission Date: 07-27-2020 : 1985 Admission Diagnosis:ATHSCL HEART DISEASE OF [place] ART W UNSTABLE ANG P Attending: RHINA ELLIS Current LOS: 7 Anticipated DC Date: Planned Disposition: Acute [facility] Primary Insurance: MEDICARE A & B Discharge Planning Comments: CM met with patient to complete initial dc planning assessment. CM educated patient on the CM role and verbal consent given by patient to complete assessment. Patient lives at home with family. Patient is independent. At discharge patient plans to return home and feels this is a safe discharge. CM discussed availability of home health, rehab services, and medical equipment. Patient denied known discharge needs at this time. At this time looks like the physicians are planning to have patient transferred to for CABG. CM will continue to follow and will assist as needed with dc plans/needs. Network Specialist: Mikayla Bianchi Appended by Mikayla Bianchi on 08/03/2020 19:11 CDT: Dr. Pierre has requested CM to start transfer to [facility] for CABG. CM contacted [facility] transfer center [phone]. and gave the patient information and was told that if this wasn't an emergent transfer for CV surgeon. CM to call transfer center back in am and request to speak with either doctor Alfonso Cheng or Lisa Kennedy nurse. CM will continue to follow and assist DCP- Discharge Planning Updated by [email or web address]: Mikayla Bianchi on 07/29/20 9:[address] CM attempted to see patient for discharge planning but at that time patient was experiencing Chest pain. CM will attempt to see patient at a later date for d/c planning / needs. DCPIA - Discharge Planning Initial Assessment Updated by [email or web address]: Mikayla Bianchi on 08/03/20 6:51 pm * Is the patient Alert and Oriented? Yes * How many steps to enter\exit or inside your home? * PCP BILL WHYTE * Pharmacy [facility] * Preadmission Environment Home with Family * ADLs Independent * Equipment None * List name and contact numbers for known caregivers / representatives who currently or will assist patient after discharge: CHIDI Patterson [facility]- [phone] * Verbal permission to speak to the caregivers and representatives has been obtained from the patient. Yes * Community resources currently utilized None * Please name any agencies selected above. [facility] MWF - [facility] * Additional services required to return to the preadmission environment? No * Can the patient safely return to the preadmission environment? Yes * Has this patient been hospitalized within the prior 30 days at any hospital? No Last DP export: 08/03/20 6:16 p Patient Name: SHAI ADAME Page 68824 at 1923 All edits/amendments must be made on the electronic document DICTATION DATE: 08/03/201921 DELIVERY TRUCK DRIVER: KIRILL 08/03/201921 RPT#: [id number] DC DATE: STATUS: ADM IN [facility] [address] [place] [address] END OF REPORT
[2020-08-04] VITALS (18 sets, daily range): BP systolic 119–166; BP diastolic 45–85
[2020-08-04 04:52] LABS: BASOPHILS 0.3 % (0-2); EOSINOPHILS 3.6 % (0-7); HEMOGLOBIN 8.6 g/dL (12-16); IMMATURE GRANULOCYTES 0.9 % (0-5); LYMPHOCYTES 19.7 % (15-50); MCHC 30.7 g/dL (31.0-37.0); MCV 110.7 fL (80.0-100.0); MEAN PLATELET VOLUME 9.9 fL (7.4-10.4); MONOCYTES 7.6 % (2-11); NEUTROPHILS 67.9 % (40-80); PLATELET COUNT 200 10x3/uL (130-400); RBC 2.53 10x6/uL (4.00-5.40); RDW 12.4 % (11.5-14.5); WBC 7.5 10x3/uL (4.8-10.8)
[2020-08-04 05:10] LABS: ALBUMIN 3.1 g/dL (3.4-5.0); ANION GAP 12.8 mmol/L (8-16); BILIRUBIN - TOTAL 0.62 mg/dL (0.2-1.3); CALCIUM 8.9 mg/dL (8.5-10.1); CARBON DIOXIDE 29.4 mmol/L (21.0-32.0); CREATININE - SERUM 8.4 mg/dL (0.6-1.3); POTASSIUM - SERUM 5.2 mmol/L (3.5-5.1)
--- NOTE | 2020-08-04 07:15 | NUR ---
Shift report received. Awake and alert. Denies chest pain at this time. States that she didn't sleep last night. Currently denies having nausea but she report that the vomited earlier in the morning. VSS. No fever. Call [facility] in reach. Will continue to monitor.
--- NOTE | 2020-08-04 11:36 | NUR ---
Pt states she has not had BM since saturday. Asking for medication to help her go to the bathroom. Dr. North notified. Orders received.
[2020-08-05 08:00] VITALS: BP 171/83
[2020-08-05 11:00] VITALS: BP 166/81
--- NOTE | 2020-08-05 11:16 | NUR ---
Nutrition Follow-up: Poor appetite. C/o nausea; last vomited yesterday. C/o constipation; last BM 07/31. Declined Nepro. Diet: Renal Wt: 163# (08/05) Labs noted (08/04): K+ 5.2, Alb 3.1 Meds noted: Colace, Milk of Magnesia, Pepcid, Protonix, Florajen, Zofran, Tums, Phoslo, electrolyte protocol -Encourage PO intake and honor food preferences within diet restrictions. -Monitor wt. -RD following.
[2020-08-05 12:00] VITALS: BP 154/80
--- NOTE | 2020-08-05 12:11 | MORECARE ---
CASE MANAGEMENT DISCHARGE SUMMARY PATIENT: SHAI ADAME UNIT: [id number] ADM DATE: 07/27/20 AGE: 35 : 85 SEX: F ROOM/BED: D.[facility] AUTHOR: AUSTIN,DOC PHYSICIAN: REFERRING PHYSICIAN: RHINA ELLIS M.D. DATE OF SERVICE: 08/05/20 Discharge Plan Patient Name: SHAI ADAME Facility: [facility]:[place] : 1985 Planned Disposition: Acute Care Hospital Anticipated Discharge Date: Discharge Date: Expected LOS: Initial Reviewer: [email or web address] Initial Review Date: 07/27/2020 Generated: 08/05/20 1:10 pm DCP- Discharge Planning Updated by [email or web address]: Mikayla Bianchi on 08/03/20 6:[address] CM tried to contact Dr. Crandall / nurse to find out if he was aware of potential transfer. The physicians all spoke of multiple situations and CM was notified at 13:30 that at this time per Dr. North. Plan is for patient to get more medically stable and transfer to floor and then they will work on transfer to [email or web address] Since patient is needing a kidney transplant eventually that way she is receiving care from the same facility. CM will continue to follow and assist as needed with discharge planning / needs. DCP- Discharge Planning Updated by [email or web address]: Mikayla Bianchi on 08/03/20 6:[address] LATE ENTRY 08/02/20 Patient Name: SHAI ADAME Admission Status: Elective Accout number: [id number] Admission Date: 07-27-2020 : 1985 Admission Diagnosis:ATHSCL HEART DISEASE OF [place] COR ART W UNSTABLE ANG P Attending: RHINA ELLIS Current LOS: 7 Anticipated DC Date: Planned Disposition: Acute [facility] Primary Insurance: MEDICARE A & B Discharge Planning Comments: CM met with patient to complete initial dc planning assessment. CM educated patient on the CM role and verbal consent given by patient to complete assessment. Patient lives at home with family. Patient is independent. At discharge patient plans to return home and feels this is a safe discharge. CM discussed availability of home health, rehab services, and medical equipment. Patient denied known discharge needs at this time. At this time looks like the physicians are planning to have patient transferred to for CABG. CM will continue to follow and will assist as needed with dc plans/needs. Charging Crane Operator: Mikayla Bianchi Appended by Mikayla Bianchi on 08/03/2020 19:11 CDT: Dr. Pierre has requested CM to start transfer to [facility] for CABG. CM contacted [facility] transfer center [phone]. and gave the patient information and was told that if this wasn't an emergent transfer for CV surgeon. CM to call transfer center back in am and request to speak with either doctor Alfonso Cheng or Lisa Kennedy nurse. CM will continue to follow and assist DCP- Discharge Planning Updated by [email or web address]: Mikayla Bianchi on 07/29/20 9:[address] CM attempted to see patient for discharge planning but at that time patient was experiencing Chest pain. CM will attempt to see patient at a later date for d/c planning / needs. DCPIA - Discharge Planning Initial Assessment Updated by [email or web address]: Mikayla Bianchi on 08/03/20 6:51 pm * Is the patient Alert and Oriented? Yes * How many steps to enter\exit or inside your home? * PCP BILL WHYTE * Pharmacy [facility] * Preadmission Environment Home with Family * ADLs Independent * Equipment None * List name and contact numbers for known caregivers / representatives who currently or will assist patient after discharge: CHIDI PALMER- [phone] * Verbal permission to speak to the caregivers and representatives has been obtained from the patient. Yes * Community resources currently utilized None * Please name any agencies selected above. [facility] * Additional services required to return to the preadmission environment? No * Can the patient safely return to the preadmission environment? Yes * Has this patient been hospitalized within the prior 30 days at any hospital? No External Providers External Provider: OTHER-OTHER Next Contact Date: Service Request Date: Service Type: Resolution: Reviewer: Comments: Last DP export: 08/03/20 6:23 p Patient Name: SHAI ADAME Page 57583 at 1211 All edits/amendments must be made on the electronic document DICTATION DATE: 08/05/201209 EDUCATION DEPARTMENT REGISTRAR: KIRILL 08/05/201209 RPT#: [id number] DC DATE: STATUS: ADM IN [facility] [address] [place] [address] END OF REPORT
[2020-08-05 16:00] VITALS: BP 151/64
--- NOTE | 2020-08-05 17:54 | NUR ---
1745: REPORT CALLED TO [facility] AT [facility].
--- NOTE | 2020-08-05 18:12 | NUR ---
1800: TRANSFERRE TO [facility] VIA AMBULANCE.
--- NOTE | 2020-08-05 19:09 | MORECARE ---
CASE MANAGEMENT DISCHARGE SUMMARY PATIENT: SHAI ADAME UNIT: [id number] ADM DATE: 07/27/20 AGE: 35 : 85 SEX: F ROOM/BED: D.02 AUTHOR: AUSTIN,DOC PHYSICIAN: REFERRING PHYSICIAN: RHINA ELLIS M.D. DATE OF SERVICE: 08/05/20 Discharge Plan Patient Name: SHAI ADAME Facility: [facility]:[place] : 1985 Planned Disposition: Acute Care Hospital Anticipated Discharge Date: 08/05/20 Discharge Date: 08/05/2020 Expected LOS: 9 Initial Reviewer: [email or web address] Initial Review Date: 07/27/2020 Generated: 08/05/20 8:08 pm Comments DCP- Discharge Planning Updated by [email or web address]: Mikayla Bianchi on 08/05/20 6:[address] CM received notification to set up transfer to [facility]. CM contacted [facility] transfer center and spoke with Danae patient's face sheet faxed over. Transfer back completed and faxed back. CM received confirmation of acceptance to [facility] patient will admit to room 809. Dr. Khan has accepted patient. Patient will finish dialysis treatment then transfer. CM notified [facility] for transport. Nursing to call report. DCP- Discharge Planning Updated by [id number]: Mikayla Bianchi on 08/03/20 6:[address] CM tried to contact Dr. Crandall / nurse to find out if he was aware of potential transfer. The physicians all spoke of multiple situations and CM was notified at 13:30 that at this time per Dr. North. Plan is for patient to get more medically stable and transfer to floor and then they will work on transfer to [facility]. Since patient is needing a kidney transplant eventually that way she is receiving care from the same facility. CM will continue to follow and assist as needed with discharge planning / needs. DCP- Discharge Planning Updated by [email or web address]: Mikayla Bianchi on 08/03/20 6:[address] LATE ENTRY 08/02/20 Patient Name: SHAI ADAME Admission Status: Elective Accout number: [id number] Admission Date: 07-27-2020 : 1985 Admission Diagnosis:ATHSCL HEART DISEASE OF [place] COR ART W UNSTABLE ANG P Attending: RHINA ELLIS Current LOS: 7 Anticipated DC Date: Planned Disposition: Acute Care Hospital Primary Insurance: MEDICARE A & B Discharge Planning Comments: CM met with patient to complete initial dc planning assessment. CM educated patient on the CM role and verbal consent given by patient to complete assessment. Patient lives at home with family. Patient is independent. At discharge patient plans to return home and feels this is a safe discharge. CM discussed availability of home health, rehab services, and medical equipment. Patient denied known discharge needs at this time. At this time looks like the physicians are planning to have patient transferred to for CABG. CM will continue to follow and will assist as needed with dc plans/needs. Screwhead Stoner And Polisher: Mikayla Bianchi Appended by Mikayla Bianchi on 08/03/2020 19:11 CDT: Dr. Pierre has requested CM to start transfer to [facility] for CABG. CM contacted [facility] transfer center [phone]. and gave the patient information and was told that if this wasn't an emergent transfer for CV surgeon. CM to call transfer center back in am and request to speak with either doctor Alfonso Cheng or Lisa Kennedy nurse. CM will continue to follow and assist DCP- Discharge Planning Updated by [email or web address]: Mikayla Bianchi on 07/29/20 9:[address] CM attempted to see patient for discharge planning but at that time patient was experiencing Chest pain. CM will attempt to see patient at a later date for d/c planning / needs. DCPIA - Discharge Planning Initial Assessment Updated by [email or web address]: Mikayla Bianchi on 08/03/20 6:51 pm * Is the patient Alert and Oriented? Yes * How many steps to enter\exit or inside your home? * PCP BILL WHYTE * Pharmacy [facility] * Preadmission Environment Home with Family * ADLs Independent * Equipment None * List name and contact numbers for known caregivers / representatives who currently or will assist patient after discharge: CHIDI PALMER- [phone] * Verbal permission to speak to the caregivers and representatives has been obtained from the patient. Yes * Community resources currently utilized None * Please name any agencies selected above. H[facility]IALYSIS MWF - [facility] * Additional services required to return to the preadmission environment? No * Can the patient safely return to the preadmission environment? Yes * Has this patient been hospitalized within the prior 30 days at any hospital? No Last DP export: 08/05/20 11:10 a Patient Name: SHAI ADAME Page 66423 at 1909 All edits/amendments must be made on the electronic document DICTATION DATE: 08/05/201907 OPERATIONS TEAM LEADER: KIRILL 08/05/201907 RPT#: [id number] DC DATE:08/05/20 STATUS: DIS IN [facility] [address] [place] [address] END OF REPORT
== END 2020-08-05 18:14 | disposition short-term general hospital (02) | DRG 177 ==
LOC: D.CATH 11:39 → D.CVICU 11:39 → D.CATH 13:30 → D.CVICU 15:56 → D.CATH 19:02 → D.CVICU 19:03
PROVIDERS: Family Medicine; Internal Medicine; Internal Medicine Cardiovascular Disease; Internal Medicine Nephrology; Thoracic Surgery (Cardiothoracic Vascular Surgery); ADMIT Internal Medicine Cardiovascular Disease; ATTEND Internal Medicine Cardiovascular Disease
PROC: B2111ZZ Fluoroscopy of Multiple Coronary Arteries using Low Osmolar Contrast (ICD-10-PCS; 2020-07-27)
PROC: 0BH17EZ Insertion of Endotracheal Airway into Trachea, Via Natural or Artificial Opening (ICD-10-PCS; 2020-07-27)
PROC: 4A023N7 Measurement of Cardiac Sampling and Pressure, Left Heart, Percutaneous Approach (ICD-10-PCS; principal; 2020-07-27 13:30)
DX: J69.0 Pneumonitis due to inhalation of food and vomit (principal); N18.6 End stage renal disease; I25.110 Atherosclerotic heart disease of native coronary artery with unstable angina pectoris; I12.0 Hypertensive chronic kidney disease with stage 5 chronic kidney disease or end stage renal disease; I24.9 Acute ischemic heart disease, unspecified; T17.918A Gastric contents in respiratory tract, part unspecified causing other injury, initial encounter; I25.2 Old myocardial infarction; K21.9 Gastro-esophageal reflux disease without esophagitis; J45.909 Unspecified asthma, uncomplicated; G89.29 Other chronic pain; M54.9 Dorsalgia, unspecified; I73.9 Peripheral vascular disease, unspecified; Z99.2 Dependence on renal dialysis; F12.90 Cannabis use, unspecified, uncomplicated; E78.00 Pure hypercholesterolemia, unspecified; D75.89 Other specified diseases of blood and blood-forming organs; E87.5 Hyperkalemia; D72.829 Elevated white blood cell count, unspecified; I65.23 Occlusion and stenosis of bilateral carotid arteries; R00.0 Tachycardia, unspecified